=== PATIENT | female | born 1980 | race Caucasian/White ===

== ENCOUNTER 2017-04-27 15:02 | Inpatient (IN) | payer OTHER ==
[~2017-04-27] VITALS: Ht 157.5 cm; Wt 76.3 kg
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
[2017-04-27] MEDS ORDERED: LAMICTAL (23:49)
[2017-04-27] MEDS ORDERED: ALPRAZOLAM (23:50)
[2017-04-27] MEDS ORDERED: SEROQUEL (23:51)
[2017-04-28 01:06] VITALS: BP 122/84
[2017-04-28 07:59] VITALS: BP 125/69
--- NOTE | 2017-04-28 10:39 | CPS PROVIDER INIT ASMT PSYCH ---
Psychiatric Admission Flask Carrier's Note Reviewed: Yes Patient Seen and Examined: Yes Identifying Information: 37yoF with hx of bipolar disorder Chief Complaint: "I was doing good" Reaction to Hospitalization: positive History of Present Illness Onset of Illness: years ago Circumstances Leading to Admission: without meds Problem(s) Justifying Need for Admission: worsening psychosis Other HPI: Per patient, she was very stable until medication change a few months ago. Since that time, things have been more difficult for her. She notes significant depression. Denies SI or HI. Feels that there are "no happy things" in her life. She denies AVHs but ?endorsed them in the past. Very poor historian. Past Psychiatric History Past Diagnosis(es)- if any: Bipolar disorder Past Precipitating Factors- if any: unknown - Include inpatient and outpatient treatment Treatment History: Current with [facility] for meds History of Suicide Attempts or Gestures SA with alcohol and all her medications in the past, became very tearful speaking about this time of her life. Substance Abuse History: Tobacco: 1/2-1ppd Alcohol: denied Illicits: denied, notes she does take her rx xanax 1/2 tablet daily Allergies: Coded Allergies: No Known Allergies (04/27/17) PER [facility] RECORD/PT UNABLE TO ANSWER Home Med List: Lamictal, xanax, and seroquel Pt not taking seroquel but taking lamicta Does not know the dose - Include any medical condition(s) that may - impact the patient's recovery/remission Past Medical History: see H&P Past History Medical History Neurological: NONE EENT: NONE Cardiovascular: NONE Respiratory: NONE Gastrointestinal: NONE Hepatic: NONE Renal: NONE Musculoskeletal: NONE Psychiatric: anxiety, bipolar disease, psychosis Endocrine: NONE Blood Disorders: NONE Cancer(s): NONE 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 History of MRSA: No History of VRE: No History of CDIFF: No Isolation History: Standard Surgical History Surgical History: none Psychiatric Family/Social Hx Family History Psychiatric Illness: depression and anxiety in the family Substance Use: denied Suicides: denied Social History Living Situation: Lives in ?rooming house but has own apartment (very vague narrative and tangiental when asked for more details) Significant Relationships (family/friends): has family and few freinds Education: HS completed, took some college courses 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 - #1 Recognizing dangerous situations. - #2 Coping Skills. - #3 Basic information about quitting. Status of Tobacco Cessation Counseling: #1, #2 AND #3 Completed Cessation Med Status Nicotine Patch Ordered Alcohol Screening - ETOH screen POS if BAL >=80 or Audit-C>= M4/F3 Audit-C Score from Diag Assess: 0 Alcohol Use Screening Results: Neg per Audit C &/or BAL - If ETOH counseling indicated - the following topics are required. - #1 Express concern about the patient's - drinking at unhealthy levels, include informing - of national norms for moderate drinking: - men <= 14 drinks/week, max 4 drinks/occasion - women <= 7 drinks/week, max 3 drinks/occasion - #2 Providing feedback, including linking alcohol to - negative physical effects (liver injury, hypertension) - negative emotional effects (relationship problems and - depression) - negative occupational consequences (reduced work - performance) - #3 Advising the patient to abstain from alcohol or - to drink below national norms for moderate drinking - (as listed above). Status of ETOH Use Counseling: #1, #2 AND #3 Completed. Metabolic Screening - Screen if on a Neuroleptic Medication - Metabolic screening should include: - Blood Pressure, BMI, Glucose or Hgb A1c, & a - Lipid profile from within the past 365 days. Metabolic Screening Pending labs Exam and Plan Mental Status Examination Ambulation Status: walking freely Appearance: older than stated age Attitude towards examiner: cooperative Psychomotor activity: ++ agitation Behavior: cooperative Quality of speech: nl r/r/s/v,slightly pressured and bizzare Affect: labile, irritable, serena, congruent Mood: "things are bad" Suicidal Ideation: denied current or recent Homicidal Ideation: denies current or recent Hallucinations: denied Paranoid/Delusional Material: ++ around neighbors and medical staff in [place] Difficulties with thought organization: slightly disorganized and bizzare Insight: poor Judgment: poor Orientation: a/o x4 Cognition: grossly intact Memory Function: grossly intact Estimate of intellectual functioning: average Assets/Strengths Patient Identified Assets/Strengths: has supportive family, has employment, has housing Impression/Plan Impression and Plan: Pt with hx of Bipolar disorder with worsening mood stabilit and increasing paranoia with medication changes. - Include all active medical diagnosis that require tx DSM 5 Diagnosis(es): Bipolar disorder with psychotic features Nicotine dependence - Initial Tx Plan for Active Psych & Medical Conditions Treatment Plan: - Discontinue seroquel, start zyprexa - Discontinue xanax and started ativan PRN severe anxiety - Would like to restart Lamictal but pt does not know dose, staff to call the pharmacy and find out her dose. She is adamant that she has been taking regularly. Will review pharm records and restart. - Need family meeting - Encourage groups - Factors that would help patient function - in a less restrictive setting. Factors: medication changes
--- NOTE | 2017-04-28 11:59 | SOCIAL WORKER SOCIAL HX PSYCH ---
Haylie Oseguera 04/28/17 1153: Social History Basic Assessment Insurance Authorization: Insurance #1: Insurance name: ANASTACIA HMO Phone number: Policy number: [id number] Group number: [id number] Authorization number: Curr Source of Income/Entitlements: employment Primary Care Physician: Patient's PCP: Jasper Blake MD PCP's Primary Language? Turkmen Language(s) Spoken At Home: Turkmen Living Situation Rents or Owns Home? rents Feel Safe Where You Are Living No Feel Safe in Relationships? No Allergies - Coded Allergies: No Known Allergies (04/27/17) PER [facility] RECORD/PT UNABLE TO ANSWER Current Medications - Miscellaneous Medications [ALPRAZOLAM] (Unknown Strength) (Unknown Dose) MENTAL HEALTH (Reported) Entered as Reported by Margoth Hernandez on 04/27/17 2350 [LAMICTAL] (Unknown Strength) (Unknown Dose) MENTAL HEALTH (Reported) Entered as Reported by Margoth Hernandez on 04/27/17 2349 [SEROQUEL] (Unknown Strength) (Unknown Dose) MENTAL HEALTH (Reported) Entered as Reported by Margoth Hernandez on 04/27/17 2351 Past History Past Medical History Neurological: NONE EENT: NONE Cardiovascular: NONE Respiratory: NONE Gastrointestinal: NONE Hepatic: NONE Renal: NONE Musculoskeletal: NONE Psychiatric: anxiety, bipolar disease, psychosis Endocrine: NONE Blood Disorders: NONE Cancer(s): NONE 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 No Relationship w/Mother: good Relationship w/Father: good Any Sibling(s)? Yes Sibling's Gender(s)/Age(s): male Sibling 1:, female Sibling 2:, female Sibling 3: Relationship w/Sibling(s): Pt reports "good" Relationship w/Friends: pt reports "good" Abuse/Trauma History Trauma History/Current Trauma: None, per Dr. Bender' note Legal History Have you ever been arrested Yes Psychiatric Treatment History Psych Treatment Inpatient Treatment Yes Outpatient Treatment Yes Location of Treatment Inpatient: [facility]. Outpatient: Private practice Reason for Treatment Inpatient: Suicide attempt Outpatient: Management of bipolar d/o Dates of Treatment Inpatient: 05/19/2002, followed by day program at Response to Treatment Unknown Diagnosis: F31.9 Bipolar I, unspecified Risk Factors: history of suicide atmpts, SA/MH hospitalized, lives alone, limited support Current Mental Status Mental Status Orientation: Current situation Affect: Anxious, Sad Speech: Hyper-verbal, Incoherent, Soft Appearance Appearance- Dress/Hygiene: Pt disheveled, wrapped in blanket Behaviors Thought Process: Tangential Thought Content: Paranoid Memory: Impaired Insight: Poor SI/HI Risk Assessment Past Suicidal Ideation/Attempts Yes - Conclusion and Recommendations for treatment - and discharge planning Summary: Pt unable to complete psychosocial interview. The pt ruminated over the time, not feeling safe, and fearing for her friends. Pt presented delusional. Dallin Levine 04/28/17 1603: Current Mental Status - Conclusion and Recommendations for treatment - and discharge planning
[2017-04-28 12:12] VITALS: BP 138/85
[2017-04-28 15:40] VITALS: BP 146/78
--- NOTE | 2017-04-28 15:51 | History & Physical ---
General Information and HPI MD Statement: I have seen and personally examined SUSY BERGER and documented this H&P. The patient is a 37 year old F who presented with a patient stated chief complaint of psychosis Source of Information: patient Exam Limitations: unable to give history History of Present Illness: 37-year-old female with history documented for psychosis and bipolar disorder who was sent in to Inpatient Psychiatry from [facility]. Unfortunately history is very limited as patient kept on saying I don't know I don't know. She is acutely psychotic. She had visitors visiting and after that she started to cry. She is walking wobbly and claims that she gets very tired when she walks. She denies any pain as such. She is crying and then talk and then cries and then talk. She could not provide me any history about her allergies or medications. Unfortunately the history was extremely limited. Allergies/Medications Allergies: Coded Allergies: No Known Allergies (04/27/17) PER [facility] RECORD/PT UNABLE TO ANSWER Home Med list [ALPRAZOLAM] (Unknown Strength) (Unknown Dose) MENTAL HEALTH (Reported) [LAMICTAL] (Unknown Strength) (Unknown Dose) MENTAL HEALTH (Reported) [SEROQUEL] (Unknown Strength) (Unknown Dose) MENTAL HEALTH (Reported) Past History Medical History Neurological: NONE EENT: NONE Cardiovascular: NONE Respiratory: NONE Gastrointestinal: NONE Hepatic: NONE Renal: NONE Musculoskeletal: NONE Psychiatric: anxiety, bipolar disease, psychosis Endocrine: NONE Blood Disorders: NONE Cancer(s): 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 Other Review of Systems Review of Systems Constitutional: Reports: see HPI. EENTM: Reports: see HPI. Cardiovascular: Reports: see HPI. Respiratory: Reports: see HPI. GI: Reports: see HPI. Musculoskeletal: Reports: see HPI. Neurological/Psychological: Reports: see HPI. Exam & Diagnostic Data Last 24 Hrs of Vital Signs/I&O Vital Signs Date Time Temp Pulse Resp B/P B/P Pulse O2 O2 Flow FiO2 Mean Ox Delivery Rate 04/28 1540 88 146/78 04/28 1212 89 138/85 04/28 0759 97.8 85 125/69 04/28 0106 97.6 66 122/84 Intake & Output 04/28 1600 04/28 0800 04/28 0000 Intake Total Output Total Balance Patient 168 lb Weight Physical Exam General Appearance acutely psychotic. Skin No Rashes HEENT PERRLA Neck Supple Cardiovascular Regular Rate, Normal S1, Normal S2 Lungs Clear to Auscultation Abdomen Normal Bowel Sounds, Soft, No Tenderness Neurological Cranial Nerves II through XII: intact Extremities No Edema Last 24 Hrs of Labs/Guero: Laboratory Tests 04/28/17 0930: Anion Gap 16, Estimated GFR > 60, BUN/Creatinine Ratio 9.0 04/27/17 2100: Urine Test Cancelled Assessment/Plan Assessment: 37-year-old female with past history significant for anxiety, psychosis and bipolar disorder who is admitted to Inpatient Psychiatry with acute psychosis. No documented medical history. Currently patient is getting treated with lamotrigine, Zyprexa, trazodone, Ativan, hydroxyzine when necessary. She also has nicotine patch ordered. For the psych management for psych. No active acute medical issues at present. As Ranked By This Provider Problem List: 1. Anxiety 2. Psychosis 3. Bipolar 1 disorder Miscellaneous Miscellaneous Documentation Attending Case Discussed With: Melly Blood MD Primary Care Physician: Hayden BALDWIN,Jasper Doe Patient sees these Specialists unknown Level of Patient Care: ROSALEE Madera
[2017-04-28 20:07] VITALS: BP 143/78
[2017-04-29 07:45] VITALS: BP 143/78
--- NOTE | 2017-04-29 10:07 | CP SOUTH PROGRESS NOTE PSYCH ---
Psych (Inpt) Progress Note Progress Note Include the following elements, when applicable: Involvement in the active treatment of the patient with behavioral observations of the patient and the patient's response to the treatment. Review of the ongoing treatment process in the context of the treatment plan. Indication of how multi-disciplinary staff members are carrying out the treatment plan. Plans for future interventions and recommendations for revision of the treatment plan. Liaison with other physicians/providers. Progress Note: Pt placed on 1:1 as fall risk and pacing at times. She has been medication complaint. Redirectable. Rambling speech today, not unlike yesterday. Denies SI or HI. Current Medications Sig/Kimberly Start time Last Medication Dose Route Stop Time Status Admin Acetaminophen 650 MG Q6P PRN 04/28 1800 AC 04/28 PO 1803 Hydroxyzine HCl 50 MG Q6P PRN 04/27 2045 AC 04/29 PO 0958 Lamotrigine 125 MG BID 04/28 1115 AC 04/29 PO 0911 Lorazepam 2 MG ONE ONE 04/28 2020 DC 04/28 PO 04/28 Lorazepam 0.5 MG Q6P PRN 04/27 2045 AC 04/28 PO 05/04 Nicotine 21 MG DAILY 04/28 1000 AC 04/29 TOP 0911 Nicotine 2 MG Q2P PRN 04/27 2030 AC PO Olanzapine 10 MG AT BEDTIME 04/27 2200 AC 04/28 PO 2011 Trazodone HCl 50 MG AT BEDTIME NEED.. 04/27 2045 AC 04/28 PO 0059 Laboratory Tests 04/29 04/28 04/27 0700 0930 2100 Chemistry Sodium (137 - 145 mmol/L) 144 Potassium (3.5 - 5.1 mmol/L) 4.1 Chloride (98 - 107 mmol/L) 109 H Carbon Dioxide (22 - 30 mmol/L) 19 L Anion Gap (5 - 16) 16 BUN (7 - 17 mg/dL) 9 Creatinine (0.5 - 1.0 mg/dL) 1.0 Estimated GFR (>60 ml/min) > 60 BUN/Creatinine Ratio (7 - 25 %) 9.0 Hemoglobin A1c (4.2 - 5.8 %) Pending Triglycerides (<150 mg/dL) 115 Cholesterol (<200 MG/DL) 163 LDL Cholesterol, Calc (65 - 129 mg/dL) 95 HDL Cholesterol (40 - 60 mg/dL) 45 Cholesterol/HDL Ratio (0.00 - 4.23 %) 4 Vitamin B12 (239 - 931 pg/mL) 932 H TSH (0.270 - 4.200 uIU/mL) 1.490 Urines Urine Test Cancelled Vital Signs Date Time Temp Pulse Resp B/P B/P Pulse O2 O2 Flow FiO2 Mean Ox Delivery Rate 04/29 745 96.8 97 143/78 04/28 2007 98.2 92 143/78 04/28 1540 88 146/78 04/28 1212 89 138/85 MSE Appears older than stated age; cooperative, rambling non-pressured speech, no eye contact, mood "I'm OK I think," affect irritable, bizzare, labile, congruent , tangenital TP, does not appear to be responding to internal stimuli, denies SI or HI, denied AVHs, very poor judgement. Pt with hx of Bipolar disorder with worsening mood stabilit and increasing paranoia with medication changes now with some unstable gait. Concern for medication-induced. To start by reducing ativan and hydroxyzine. - Continue zyprexa - Discontinue xanax and started ativan PRN severe anxiety, decreased to q8p from q6p - Decreased atarax dose to 25mg - Lamictal restarted, verified with home pharmacy - Need family meeting - Encourage groups
[2017-04-29 12:40] VITALS: BP 133/89
[2017-04-29 15:51] VITALS: BP 142/77
[2017-04-29 19:19] VITALS: BP 136/79
[2017-04-30 08:01] VITALS: BP 141/82
[2017-04-30 12:13] VITALS: BP 137/86
--- NOTE | 2017-04-30 15:35 | CP SOUTH PROGRESS NOTE PSYCH ---
Psych (Inpt) Progress Note Progress Note SUSY BERGER has been admitted for 3 days. 04/30/17 Progress Note: Current Medications Sig/Kimberly Start time Last Medication Dose Route Stop Time Status Admin Acetaminophen 650 MG Q6P PRN 04/28 1800 AC 04/29 PO 1444 Diphenhydramine HCl 50 MG ONE ONE 04/29 2024 DC 04/29 PO 04/29 Divalproex Sodium 500 MG BID 04/30 1508 UNVr PO Gabapentin 600 MG AT BEDTIME 04/30 2200 UNVr PO Haloperidol 2.5 MG ONE ONE 04/29 2024 DC 04/29 PO 04/29 Hydroxyzine HCl 25 MG Q6P PRN 04/29 1015 AC PO Lamotrigine 125 MG BID 04/28 1115 AC 04/30 PO 0855 Lorazepam 2 MG ONCE ONE 04/30 1515 UNVr PO 04/30 1516 Lorazepam 1 MG 0110 04/30 011 DC 04/30 PO 04/30 011 0115 Lorazepam 1 MG ONE ONE 04/29 2024 DC 04/29 PO 04/29 Lorazepam 0.5 MG Q8P PRN 04/29 1015 AC 04/30 PO 05/06 1003 0855 Nicotine 21 MG ONCE ONE 04/30 1515 UNVr TOP 04/30 1516 Nicotine 21 MG DAILY 04/28 1000 AC 04/30 TOP 0855 Nicotine 2 MG Q2P PRN 04/27 2030 AC PO Olanzapine 10 MG ONCE ONE 04/30 1515 UNVr PO 04/30 1516 Olanzapine 5 MG 0110 04/30 011 DC 04/30 PO 04/30 011 0115 Olanzapine 10 MG AT BEDTIME 04/27 2200 AC 04/29 PO 195 Trazodone HCl 50 MG AT BEDTIME NEED.. 04/27 2045 DC 04/29 PO 2023 Orders Procedure Date/time Status VALPROIC ACID 05/03 0600 Active HEPATIC FUNCTION PANEL 05/03 0600 Active [facility] Sitter/Safety Monitor 04/29 1900 Active THYROID STIMULATING HORMONE 04/29 0600 Complete LIPID PANEL 04/29 0600 Complete GLYCOSYLATED HGB 04/29 0600 Complete VITAMIN B12 04/29 0600 Complete [facility] Sitter/Safety Monitor 04/29 0000 Active SUB HSP (15 MIN) 04/29 UNK Complete INPT Psych Sitter 04/29 UNK Active [facility] Sitter/Safety Monitor 04/29 UNK Complete Regular Diet 04/28 B Active INPT Psych Sitter 04/28 2310 Complete BASIC ELECTROLYTES PLUS BUN&CR 04/28 06 Complete INIT HSP (50 MIN) 04/28 UNK Complete INPT Psych Sitter 04/28 UNK Complete MISSING MEDICATION FORM 04/28 UNK Active Vital Signs 04/27 2050 Active Inpt Psych Teach/Educate 04/27 2050 Active Nutritional Intake, Monitor 04/27 2050 Active Inpt Psych Auricular Acupunctu 04/27 2050 Active Patient Data - inpatient psych 04/27 2020 Active Admit to inpatient psych 04/27 2020 Active EKG 04/27 2020 Active Vital Signs 04/27 UNK Active Activity/Ambulation 04/27 UNK Active Laboratory Tests 04/29 04/28 04/27 0700 0930 2100 Chemistry Sodium (137 - 145 mmol/L) 144 Potassium (3.5 - 5.1 mmol/L) 4.1 Chloride (98 - 107 mmol/L) 109 H Carbon Dioxide (22 - 30 mmol/L) 19 L Anion Gap (5 - 16) 16 BUN (7 - 17 mg/dL) 9 Creatinine (0.5 - 1.0 mg/dL) 1.0 Estimated GFR (>60 ml/min) > 60 BUN/Creatinine Ratio (7 - 25 %) 9.0 Hemoglobin A1c (4.2 - 5.8 %) 5.8 Triglycerides (<150 mg/dL) 115 Cholesterol (<200 MG/DL) 163 LDL Cholesterol, Calc (65 - 129 mg/dL) 95 HDL Cholesterol (40 - 60 mg/dL) 45 Cholesterol/HDL Ratio (0.00 - 4.23 %) 4 Vitamin B12 (239 - 931 pg/mL) 932 H TSH (0.270 - 4.200 uIU/mL) 1.490 Urines Urine Test Cancelled Vital Signs Date Time Temp Pulse Resp B/P B/P Pulse O2 O2 Flow FiO2 Mean Ox Delivery Rate 04/30 1213 91 137/86 04/30 0801 98.2 81 141/82 04/29 1919 97.5 97 136/79 04/29 1551 90 142/77 Case was discussed in Interdisciplinary Treatment Team Meeting this morning with Dr. Worley present. The chart was reviewed, including vital signs, labs and medications. 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 She was able to report a failed trial of lithium in the past with severe tremor and adverse events that were intolrable and resulted in D/C. She was not able to provide much more useful hx as she attempted to explain her hx by lining pencils up on te desk. She started to articulate illogcal and confused thoughts which didn't make any sense. She exhibited inappropriate laughter at some points. She agreeed to take new medications that were discussed with her. She reported she has never taken Depakote in the past. Pertinent Review of Systems (ROS): denies any somatic complaints. Mental Status Examination Appearance: dressed in hospital garb Behavior/Activity: She was attempting to explain her medication history by laying pencils out on the desk and pages from a coloring book. Speech: normal Thought Form: Clearly thought disordered, confused, disconnected thoughts only able to provide some specific information about medication history specifically with the lithium Thought Content: She acknowledged that she is experiencing auditory hallucinations and paranoid ideation but she was not able to get into the specifics. Mood: Hypomanic, slightly elated Affect: Inappropriate laughter at points during the encounter Suicidal Ideation: denies Homicidal Ideation:denies Orientation: oriented in all spheres Memory: grossly intact Judgment/Insight: Poor Attention/Concentration: Impaired Other: Medical Decision Making (Note new problems, management options, dangerousness risks) Assessment: 37 yo female experiencing manic decempemsation with psychosis. She has not been taking medication for about 3 months. Diagnoses: Acute decompensationBipolar disorder with psychotic features Treatment Plan: Start Depakote ER 500 mg by mouth twice a day Continue Zyprexa 10 mg at bedtime 1 time dose of Zyprexa 10 mg now 1 time dose of Ativan 2 mg now Valproic acid level and liver panel pending for a.m. STATUS: Voluntary A total of 45 minutes was spent with the patient, with more than 50% of the timespent in counseling and/or coordination of care.
--- NOTE | 2017-04-30 15:39 | SOCIAL WORKER PROG NOTE PSYCH ---
Social Work Progress Note Progress Note Marizol was sitting by the [employer], with a pile of papers in her hand. She seemed excited to meet me and as we started walking towards a place to talk, as we were walking she started taking items off of the nursing station and needed redirection to give them back. She remains on a one to one sitter due to her symptoms at this time. She went straight into the bathroom and was there for at least 20 minutes. I did not get to interact with her further.
[2017-04-30 15:53] VITALS: BP 144/65
[2017-04-30 20:05] VITALS: BP 135/82
[2017-05-01 08:47] VITALS: BP 140/79
[2017-05-01 12:31] VITALS: BP 133/92
--- NOTE | 2017-05-01 13:54 | SOCIAL WORKER PROG NOTE PSYCH ---
Social Work Progress Note Progress Note Marizol appeared very labile today. Presented as tearful and hyperverbal with disorganized tangential thoughts. She stated she was crying because she was "so happy." She attempted to give me answers to some of my questions, but she had difficulting organizing thoughts and staying on topic. She talked briefly about an ex-boyfriend Joaquin who she had been living with and how her family had gone on a cruise for Thanksgiving. She felt she was not doing well, but didn't have anyone to trust or turn to. She reports being under alot of stress. As I am trying to talk to her, I was stating "Do you?.." She said "know the kotain man. " It was difficult to have any rational conversation. She kept stating she needs to be not so low and brought up a little on her meds. I told her that I was going to reach out to family. Left a message with Marizol's Mother [phone]. Marizol was very hyperverbal, but a little less tearful. She rambled about her medications not being right and how she knows what works and what doesn't and she doesn't feel she is being heard. Empathized with her frustrations.
--- NOTE | 2017-05-01 14:19 | CP SOUTH PROGRESS NOTE PSYCH ---
Psych (Inpt) Progress Note Progress Note SUSY BERGER has been admitted for 4 days. 05/01/17 Progress Note: Current Medications Sig/Kimberly Start time Last Medication Dose Route Stop Time Status Admin Acetaminophen 650 MG Q6P PRN 04/28 1800 AC 04/29 PO 1444 Divalproex Sodium 500 MG BID 04/30 1508 AC 05/01 PO 0840 Gabapentin 600 MG AT BEDTIME 04/30 2200 AC 04/30 PO 2226 Hydroxyzine HCl 25 MG Q6P PRN 04/29 1015 AC PO Lamotrigine 125 MG BID 04/28 1115 AC 05/01 PO 0840 Lorazepam 2 MG ONCE ONE 04/30 1515 DC 04/30 PO 04/30 1516 1556 Lorazepam 0.5 MG Q8P PRN 04/29 1015 AC 05/01 PO 05/06 1003 0950 Nicotine 21 MG ONCE ONE 04/30 1515 DC 04/30 TOP 04/30 1516 1556 Nicotine 21 MG DAILY 04/28 1000 AC 05/01 TOP 1021 Nicotine 2 MG Q2P PRN 04/27 2030 AC PO Olanzapine 10 MG ONCE ONE 04/30 1515 DC 04/30 PO 04/30 1516 1556 Olanzapine 10 MG AT BEDTIME 04/27 2200 AC 04/30 PO 2226 Trazodone HCl 50 MG AT BEDTIME NEED.. 04/27 2045 DC 04/29 PO 2023 Laboratory Tests 04/29 0700 Chemistry Hemoglobin A1c (4.2 - 5.8 %) 5.8 Triglycerides (<150 mg/dL) 115 Cholesterol (<200 MG/DL) 163 LDL Cholesterol, Calc (65 - 129 mg/dL) 95 HDL Cholesterol (40 - 60 mg/dL) 45 Cholesterol/HDL Ratio (0.00 - 4.23 %) 4 Vitamin B12 (239 - 931 pg/mL) 932 H TSH (0.270 - 4.200 uIU/mL) 1.490 Orders Procedure Date/time Status VALPROIC ACID 05/03 0600 Active HEPATIC FUNCTION PANEL 05/03 0600 Active [facility] Sitter/Safety Monitor 05/01 UNK Complete [facility] Sitter/Safety Monitor 04/29 1900 Complete [facility] Sitter/Safety Monitor 04/29 0000 Complete SUB HSP (15 MIN) 04/29 UNK Complete INPT Psych Sitter 04/29 UNK Complete [facility] Sitter/Safety Monitor 04/29 UNK Complete INPT Psych Sitter 04/28 2310 Complete INIT HSP (50 MIN) 04/28 UNK Complete INPT Psych Sitter 04/28 UNK Complete MISSING MEDICATION FORM 04/28 UNK Active Vital Signs Date Time Temp Pulse Resp B/P B/P Pulse O2 O2 Flow FiO2 Mean Ox Delivery Rate 05/01 1231 96 133/92 05/01 0847 97.2 98 140/79 04/30 2005 97.1 85 135/82 04/30 1553 98 144/65 Case was discussed in Interdisciplinary Treatment Team Meeting this morning with Dr. Worley present. The chart was reviewed, including vital signs, labs and medications. Interval History/Chief Complaint: She was tearful and sobbing during the encounter today. She is still confused but able to articulate her thoughts somewhat better than she was able yesterday- -less manic and more on the depressed side today Pertinent Review of Systems (ROS): denies somatic complaints Mental Status Examination Appearance: dressed and groomed Behavior/Activity: Speech: normal Thought Form: confused, disjointed thoughts Thought Content: + AH's Mood: sad depressed Affect: crying Suicidal Ideation: denies Homicidal Ideation:denies Orientation: not assessed today Memory: grossly impaired Judgment/Insight: poor Attention/Concentration: intact Other: Medical Decision Making (Note new problems, management options, dangerousness risks) Assessment: She is still very confused and today mood has shifted to being depressed Diagnoses: Acute decompensationBipolar disorder with psychotic features Treatment Plan: zyprexa 5 mg now. klonopin 0.5 mg tid x 3 days continue current treatment plan STATUS: Voluntary A total of 45 minutes was spent with the patient, with more than 50% of the timespent in counseling and/or coordination of care.
[2017-05-01 15:59] VITALS: BP 115/77
[2017-05-01 19:47] VITALS: BP 130/76
[2017-05-02 08:59] VITALS: BP 131/101
[2017-05-02 12:20] VITALS: BP 112/77
--- NOTE | 2017-05-02 16:19 | SOCIAL WORKER PROG NOTE PSYCH ---
Social Work Progress Note Progress Note Marizol's Mother Thalia called and asked if I could fax a letter to Marizol's employer stating she is currently in the hospital. This information was faxed to Cheri Vera at [phone]. Met with Marizol who was less labile today than yesterday. She was able to have a conversation without sobbing. Thoughts were more organized as well. She has been trying to verbalize a sequence of events to me that show that there have been a number of stressors leading up to her decompensation and that it wasn't just one thing. She denies being off of her meds. Family meeting is scheduled for 4pm tomorrow. Called and left updated clinical with Cesar for continued stay.
[2017-05-02 16:41] VITALS: BP 113/69
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
[2017-05-02 19:36] VITALS: BP 128/78
[2017-05-03 07:59] VITALS: BP 114/57
[2017-05-03 12:23] VITALS: BP 119/71
[2017-05-03 15:56] VITALS: BP 130/72
--- NOTE | 2017-05-03 17:33 | SOCIAL WORKER PROG NOTE PSYCH ---
Social Work Progress Note Progress Note Family meeting held with Marizol and her parents. Her parents stated Marizol had been stable for a long time. She has not had an inpatient hospitalization in about 10 years. They were very surprised she was in this much of a decompensated state. The usually talk to Marizol on the phone or see her weekly. They had no idea alot of what she had been describing was going on. They do not want her to return home to her apartment at / and want her to come stay with them in [place]. Marizol is upset about the possibility of leaving her cats. She cannot take her 3 cats to her parents. She cried about the idea of being here through the weekend. I told her she has made alot of progress, but more is needed. She remained pretty hyperverbal during the meeting, she talked for a good majority of the hour we spent. She has alot of details that she likes to share about what has happened to her. Alot of it is repetative and I needed to redirect. She is still having a difficult time adjusting her sleep schedule to being here and adjusting the time she needs to take meds while here. She will most likely go on FMLA from work for some time. We will discuss aftercare possibilities in future meetings. Parents were very supportive.
[2017-05-03 20:02] VITALS: BP 135/62
--- NOTE | 2017-05-03 20:04 | CP SOUTH PROGRESS NOTE PSYCH ---
Psych (Inpt) Progress Note Progress Note SUSY BERGER has been admitted for 6 days. 05/03/17 Progress Note: Laboratory Tests 05/03 628 Chemistry Total Bilirubin (0.2 - 1.3 mg/dL) 0.5 Direct Bilirubin (< 0.4 mg/dL) 0.3 AST (14 - 36 U/L) 21 ALT (9 - 52 U/L) 31 Alkaline Phosphatase (<127 U/L) 74 Total Protein (6.3 - 8.2 g/dL) 6.9 Albumin (3.5 - 5.0 g/dL) 4.0 Toxicology Valproic Acid (50 - 120 ug/mL) 63.8 Vital Signs Date Time Temp Pulse Resp B/P B/P Pulse O2 O2 Flow FiO2 Mean Ox Delivery Rate 05/03 1556 72 130/72 05/03 1223 74 119/71 05/03 0759 96.9 78 114/57 Current Medications Sig/Kimberly Start time Last Medication Dose Route Stop Time Status Admin Acetaminophen 650 MG Q6P PRN 04/28 1800 AC 04/29 PO 1444 Clonazepam 0.5 MG TID 05/01 1600 AC 05/03 PO 05/11 2300 1701 Divalproex Sodium 500 MG BID 04/30 1508 AC 05/03 PO 0918 Gabapentin 600 MG AT BEDTIME 04/30 220 AC 05/02 PO 2149 Hydroxyzine HCl 25 MG Q6P PRN 04/29 1015 AC PO Lamotrigine 125 MG BID 04/28 1115 AC 05/03 PO 0815 Lorazepam 0.5 MG Q8P PRN 04/29 1015 AC 05/01 PO 05/06 1003 0950 Nicotine 21 MG DAILY 04/28 1000 AC 05/03 TOP 0815 Nicotine 2 MG Q2P PRN 04/27 2030 AC PO Olanzapine 10 MG AT BEDTIME 04/27 2200 AC 05/02 PO 2149 Sertraline HCl 50 MG DAILY 05/01 1410 AC 05/03 PO 0918 Orders Procedure Date/time Status SUB HSP (35 MIN) 05/02 UNK Complete MISSING MEDICATION FORM 05/02 UNK Active SUB HSP (35 MIN) 05/01 UNK Complete [facility] Sitter/Safety Monitor 05/01 UNK Complete SUB HSP (35 MIN) 04/30 UNK Complete She is sleeping through the night. She appears to be less manic and her thinking is more organized but she remains thought disordered overall, but exhibiting improvement. PLAN: Continue current treatment plan. arrange meeting with parents monitor response to medications
[2017-05-04 08:14] VITALS: BP 117/75
[2017-05-04 12:14] VITALS: BP 120/75
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
--- NOTE | 2017-05-04 15:00 | SOCIAL WORKER PROG NOTE PSYCH ---
Social Work Progress Note Progress Note Started filling out [facility] paperwork for Marizol. Met with Marizlo, who wanted to share a picture/graph of how she thinks her meds should be given. She remains very preoccupied with her medication and schedule. She is feeling tired of repeating herself in attempts to advocate for what she feels she needs. She remains hyperverbal and tangential. She is having a very hard time with the idea that she may go to her parent's home after discharge. She can't bear the idea of giving up her cats. She is very attached to her 3 cats and has had to give up pets in the past. She became very tearful. She was also tearful when talking about the idea of not being able to return to work around [place]. I told her I was filling out the [facility] paperwork and I thought she may need a couple of months at least, so she could follow up at [facility]. She has limited insight into what she needs realistically. She is disappointed that she ended up in the hospital. I talked about relapses happening and it's ok that she is here. She feels over stimulated by the unit at times and needs to find time when she can feel grounded. Told her I will see her Sunday and to try and have a good weekend.
[2017-05-04 15:53] VITALS: BP 125/72
[2017-05-04 19:40] VITALS: BP 118/66
[2017-05-05 07:39] VITALS: BP 135/76
--- NOTE | 2017-05-05 08:57 | CP SOUTH PROGRESS NOTE PSYCH ---
See Addendum Psych (Inpt) Progress Note Progress Note Include the following elements, when applicable: Involvement in the active treatment of the patient with behavioral observations of the patient and the patient's response to the treatment. Review of the ongoing treatment process in the context of the treatment plan. Indication of how multi-disciplinary staff members are carrying out the treatment plan. Plans for future interventions and recommendations for revision of the treatment plan. Liaison with other physicians/providers. 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 Labile, continued stating that she has to reach in a different direction, farther, so I get back to milk and tearful. Incoherent, difficult to understand. Word salad. MSE: young woman, pleasant, fair grooming. She has no tics, tremors or abnormal invol movements. Her gait was initially unsteady but then normal she stated she is leaning because she has to go in one [place] in one direction and not another. Her speech is rapid. Her affect is labile, mood is good overall. She has referential thinking, word salad at times, overall she is tangential. She denies hearing voices and does not appear internally preoccupied but laughs at her own statements at times. She denies wanting to harm herself or anyone else. She has fair insight and fair judgment. Plan: Agrees to increase zyprexa to include daytime dose 5mg; in addition to her zyprexa 15mg at night time. Continue current plan of care. She remains acutely psychotic and disorganized, increasing her acute risk of harm to self/ others; address with education about her meds, and medication adjustment to target her psychosis.
[2017-05-05 12:12] VITALS: BP 131/88
--- NOTE | 2017-05-05 14:43 | PN- Att Addend ---
Attending Addendum Attending Brief Note 37-year-old female with history documented for psychosis and bipolar disorder who was sent in to Inpatient Psychiatry from [facility]. Informed that the patient slipped and fell down Examine the patient at bedside. Denied any loss of consciousness, nausea vomiting, headache No focal neurological deficits on examination. Cranial nerves intact History mechanical fall. No visible head trauma. Close monitoring. If any symptoms of worsening headache nausea, dizziness syncope lightheadedness - we will obtain imaging of the head.
[2017-05-05 16:02] VITALS: BP 130/80
[2017-05-05 19:33] VITALS: BP 126/78
[2017-05-06 07:56] VITALS: BP 128/62
--- NOTE | 2017-05-06 09:38 | CP SOUTH PROGRESS NOTE PSYCH ---
Psych (Inpt) Progress Note Progress Note Include the following elements, when applicable: Involvement in the active treatment of the patient with behavioral observations of the patient and the patient's response to the treatment. Review of the ongoing treatment process in the context of the treatment plan. Indication of how multi-disciplinary staff members are carrying out the treatment plan. Plans for future interventions and recommendations for revision of the treatment plan. Liaison with other physicians/providers. Progress Note: Stated that she slept like a log, until they say my name, my real name, not a lukas name, otherwise I wont trust you, unless I look you in the eye my middle name is Jeanne, no Aury or Jennie using a walker and appear to be more steady, and mildly less disorganized. Stated that she will have trouble trying to take a shower and turning off the crazy shower thing because of her day time meds. Other difficult to understand statements. MSE: young woman, pleasant, fair grooming. She has no tics, tremors or abnormal invol movements. She uses a walker now and appears mildly more goal oriented in where she is going. Her speech is rapid and difficult to interrupt. Her affect is full and her mood is good. Her thought process is tangential with looseness of association. No gross delusions elicited. No evidence of internal preoccupation but she is easily distracted. She denies wanting to harm herself or anyone else. She has fair insight and fair judgment. Plan: zyprexa 5mg in the day time and 15mg at night time. If unsteady or c/o dizziness change day time dose to night time, had added in the day time dose yesterday to help her organize her thinking. Also stopped her afternoon clonazepam dose. Continue current plan of care. She remains acutely psychotic and disorganized, increasing her acute risk of harm to self/others; address with education about her meds, and medication adjustment to target her psychosis.
[2017-05-06 12:22] VITALS: BP 120/64
[2017-05-06 15:58] VITALS: BP 132/73
[2017-05-06 19:38] VITALS: BP 141/75
[2017-05-07 07:41] VITALS: BP 133/80
--- NOTE | 2017-05-07 09:56 | CT SCAN REPORT ---
EXAMINATION: CT HEAD WITHOUT CONTRAST CLINICAL INFORMATION: Pain status post fall COMPARISON: None TECHNIQUE: Contiguous axial imaging was performed from the skull base to vertex without intravenous administration of contrast. DLP: 628 mGy-cm FINDINGS: There is no evidence of acute intracranial hemorrhage or territorial infarction. No abnormal mass effect or midline shift is seen. Pena to white matter differentiation is well preserved. No extra-axial fluid collections are identified. The ventricles are top normal size. There is no abnormal attenuation within the brain parenchyma. The osseous structures and soft tissues are normal. The mastoid air cells and visualized portions of the paranasal sinuses are well aerated. IMPRESSION: No acute intracranial pathology.
[2017-05-07 12:26] VITALS: BP 122/66
--- NOTE | 2017-05-07 14:12 | SOCIAL WORKER PROG NOTE PSYCH ---
Social Work Progress Note Progress Note Marizol is on a one to one for fall risk and using a walker after having fallen over the weekend and hit head. She reports that the dizziness is from taking Seroquel and that she can't be on that medication. She remains hyperverbal, but increasingly exhausted about "having to tell so many different people her story. " She continues to say she doesn't feel listened to, particularly about her meds. She shared that family visited over the weekend and she spoke with her ex -fiance. She reports that he remains at her apartment and that he would like to come see her. She is talking about staying with him now, which is a change from last week. She stated that she feels he has re-engaged and is trying to be helpful. She is lacking the insight right now to understand that she cannot return to work right away. She is preseverating on missing her [employer] bonus, due to not working. I continue to encourage IOP post discharge. I told her I would like to schedule another family meeting for this week if possible. She seems to want Joaquin (ex-kiara) there. She was very tearful towards the end of our meeting. She is focused on other patients leaving and her still being here. She also feels mistrustful of newer peers. She doesn't want to be here through [employer]. Called Marizol's Mother Madisyn. She confirmed that Joaquin is at the apartment and he was hospitalized for meningitis and he was wondering about Marizol. She is now wondering if what Marizol was saying about Joaquin is accurate or was just a symptom of how ill she is right now. Parents are willing to coordinate a meeting with Joaquin for at 3pm. Called and left updated clinical with Crystal kapadia.
--- NOTE | 2017-05-07 15:28 | Event Note ---
Event Note Event Note: Was called by RN to order head imaging study due to some abnormal behavior. The patient was evaluated by Dr. Osman yesterday and no imaging felt was needed, however with behavior change staff is requesting imaging. CT of head done w/o contrast and demonstrates normal study. No evidence intracranial bleed/trauma. Will follow symptoms which may be due to psych meds ( Seroquel).
[2017-05-07 16:33] VITALS: BP 137/81
--- NOTE | 2017-05-07 16:37 | CP SOUTH PROGRESS NOTE PSYCH ---
Psych (Inpt) Progress Note Progress Note SUSY BERGER has been admitted for 10 days. 05/07/17 Progress Note: Current Medications Sig/Kimberly Start time Last Medication Dose Route Stop Time Status Admin Acetaminophen 650 MG Q6P PRN 04/28 1800 AC 04/29 PO 1444 Clonazepam 0.5 MG BID 05/05 1000 AC 05/07 PO 05/12 0959 0939 Divalproex Sodium 500 MG BID 04/30 1508 AC 05/07 PO 0939 Gabapentin 600 MG AT BEDTIME 04/30 2200 AC 05/06 PO 2149 Hydroxyzine HCl 25 MG Q6P PRN 04/29 1015 AC PO Lamotrigine 150 MG BID@0700,1900 05/04 1900 AC 05/07 PO 0939 Nicotine 21 MG DAILY 04/28 1000 AC 05/07 TOP 0944 Nicotine 2 MG Q2P PRN 04/27 2030 AC 05/04 PO 2133 Olanzapine 5 MG DAILY 05/05 1000 AC 05/07 PO 0939 Olanzapine 15 MG AT BEDTIME 05/04 2200 AC 05/06 PO 2149 Laboratory Tests 05/07 0654 Toxicology Valproic Acid (50 - 120 ug/mL) 88.7 Orders Procedure Date/time Status INPT Psych Sitter 05/07 1303 Active CP South Sitter/Safety Monitor 05/07 1149 Active SUB HSP (15 MIN) 05/04 UNK Complete Vital Signs Date Time Temp Pulse Resp B/P B/P Pulse O2 O2 Flow FiO2 Mean Ox Delivery Rate 05/07 1226 71 122/66 05/07 0741 96.6 76 133/80 05/06 1938 97.5 83 141/75 Case was discussed in Interdisciplinary Treatment Team Meeting this morning with Dr. Worley present. The chart was reviewed, including vital signs, labs and medications. Interval History/Chief Complaint: She presents with a walker and she is slurring her speech. She had taken a fall over the weekend and she was seen by the hospitalist and CT Scan was negative. She is reporting that she is seeking a plan with her SW to have a family mtg with parents and ex-bf on Sunday. She is keeping the current arrangement in place for care of her cats while she will be staying with her parents. I received a VM return msg from Jenna Gillette APRN, who indicated patient has not come in for over 6 months. She also indicated that she is not in her insurance network and suggested that she connect with a prescriber in her network for f/u psych med mgt after d/c from hospital. Pertinent Review of Systems (ROS): ataxia, dizzy and unstable gait slurred speech. Mental Status Examination Appearance: dressed and groomed Behavior/Activity: appropriate Speech: normal Thought Form: logical, coherent and goal-directed Thought Content: no AHs or VHs no delusions elicited Mood: euthymic Affect: full and appropriately reactive Suicidal Ideation: denies Homicidal Ideation:denies Orientation: oriented in all spheres Memory: grossly intact Judgment/Insight: poor to fair Attention/Concentration: intact Other: Medical Decision Making (Note new problems, management options, dangerousness risks) She appears to have been gait ataxic and slurring her speech due to Klonopin/ Gabapentin. Will stop both as she had no prior established benzodiazepine she was taking. Assessment: her thoughts are linear and coherent but still tangential at times - - sleeping through the night. Mood id more stable Diagnoses: Acute decompensationBipolar disorder with psychotic features Treatment Plan: STOP: KLONOPIN ZYPREXA 5 MG QAM ATARAX ID PSYCH PRESCRIBER IN HER INSURANCE NETWORK AND MAKE APPT PART OF D/C PLAN - - CANNOT SEE JENNA GILLETTE APRN DUE TO NOT BEING IN NETWORK FAMILY MEETING WITH PARENTS AND EX-BF IN PROCESS CURRENTLY STATUS: Voluntary A total of 30 minutes was spent with the patient, with more than 50% of the timespent in counseling and/or coordination of care.
[2017-05-07 20:00] VITALS: BP 118/77
[2017-05-08 08:33] VITALS: BP 102/58
[2017-05-08 11:03] VITALS: BP 100/52
--- NOTE | 2017-05-08 11:17 | CP SOUTH PROGRESS NOTE PSYCH ---
Psych (Inpt) Progress Note Progress Note SUSY BERGER has been admitted for 11 days. 05/08/17 Progress Note: Current Medications Sig/Kimberly Start time Last Medication Dose Route Stop Time Status Admin Acetaminophen 650 MG Q6P PRN 04/28 1800 AC 04/29 PO 1444 Clonazepam 0.5 MG BID 05/05 1000 DC 05/07 PO 05/12 0959 0939 Divalproex Sodium 500 MG BID 04/30 1508 AC 05/08 PO 1049 Gabapentin 600 MG AT BEDTIME 04/30 2200 AC 05/07 PO 2120 Hydroxyzine HCl 25 MG Q6P PRN 04/29 1015 DC PO Lamotrigine 150 MG BID@0700,1900 05/04 1900 DC 05/08 PO 0641 Nicotine 21 MG DAILY 04/28 1000 AC 05/07 TOP 0944 Nicotine 2 MG Q2P PRN 04/27 2030 AC 05/04 PO 2133 Olanzapine 5 MG DAILY 05/05 1000 DC 05/07 PO 0939 Olanzapine 15 MG AT BEDTIME 05/040 AC 05/07 PO 2120 Laboratory Tests 05/07 0654 Toxicology Valproic Acid (50 - 120 ug/mL) 88.7 Orders Procedure Date/time Status INPT Psych Sitter 05/07 1303 Active CP South Sitter/Safety Monitor 05/07 1149 Active SUB HSP (15 MIN) 05/05 UNK Complete SUB HSP (35 MIN) 05/03 UNK Complete Vital Signs Date Time Temp Pulse Resp B/P B/P Pulse O2 O2 Flow FiO2 Mean Ox Delivery Rate 05/08 0833 97.6 50 102/58 05/07 2000 96.5 68 118/77 05/07 1633 73 137/81 05/07 1226 71 122/66 Case was discussed in Interdisciplinary Treatment Team Meeting this morning with Dr. Worley present. The chart was reviewed, including vital signs, labs and medications. Interval History/Chief Complaint: Patient was discussed in the morning interdisciplinary team meeting today and it was reported the patient is having increasing difficulty with vomiting and gait ataxia. When patient was seen today it was noted she was unable to get out of bed and had some episodes of emesis. Upon further examination and questioning it was clear that the patient was having severe vertigo and she denied any other complaints or symptoms other than gait ataxia and the emesis. She had no nuchal rigidity and was able to touch her chin to her chest with ease and denied any problems with motor stiffness or involuntary movements etc. Review of medications reveals patient is taking Depakote ER with Lamictal, concomitantly and the Micromedex shows a major interaction between these 2 drugs which results in a higher level of Lamictal and possibly Lamictal toxicity and raises the possibility of rashes and Torres-Gregorio syndrome. She is not having any rash or fever at this time. Discussed this case with Javier Worley MD and he advised the reduction of the Lamictal by 50% and to check a ammonia level and a valproic acid level today. I have also placed a request for Dr. Gottlieb, the hospitalist to come see the patient who has agreed to do so later today. Incidentally, the patient's roommate was hospitalized at [facility] for viral meningitis just prior to admission here as reported by the patient. With the patient's permission I called her roommate/ex-boyfriend to confirm this history and he did acknowledge that he was hospitalized for viral meningitis. The patient did have contact with the boyfriend prior to his admission to hospital for viral meningitis. Patient is experiencing severe vertigo. Medical Decision Making (Note new problems, management options, dangerousness risks) Assessment: Differential diagnosis: Lamictal toxicity due to major medication interaction with valproic acid Labyrinthitis, viral Medication oversedation i.e. Klonopin, Zyprexa, gabapentin, Atarax Viral meningitis (less likely, symptoms not entirely consistent) Diagnoses: Bipolar disorder with psychotic features Treatment Plan: Phenergan 25 mg IM now Antivert 50 mg by mouth 30 minutes after administration of Phenergan Reduce Lamictal dose by 50% Check valproic acid level Check ammonia level check CBC Continue one to one sitter Request hospitalist evaluation (in process) STATUS: Voluntary A total of 45 minutes was spent with the patient, with more than 50% of the timespent in counseling and/or coordination of care.
[2017-05-08 12:29] LABS: ABSOLUTE BASOPHIL COUNT 0 /CUMM (0.0-0.2); ABSOLUTE EOSINOPHIL COUNT 0.1 /CUMM (0.0-0.7); ABSOLUTE GRANULOCYTE CT 7.7 /CUMM (1.4-6.5); ABSOLUTE LYMPH COUNT 1.3 /CUMM (1.2-3.4); ABSOLUTE MONOCYTE COUNT 0.2 /CUMM (0.10-0.60); BASOPHIL % 0.3 % (0.0-2.0); EOSINOPHIL % 0.9 % (0-5); GRANULOCYTE % 82.5 % (42.2-75.2); HEMATOCRIT 39.2 % (37-47); MEAN CORPUSCULAR HGB 30.7 PG (27.0-31.0); MEAN CORPUSCULAR HGB CONC 33.8 G/DL (33.0-37.0); MEAN CORPUSCULAR VOLUME 90.7 FL (81.0-99.0); MEAN PLATELET VOLUME 7.7 FL (7.4-10.4); PLATELET COUNT 275 /CUMM (130-400); RED BLOOD CELL CT 4.32 /CUMM (4.20-5.40); WHITE BLOOD CELL COUNT 9.4 /CUMM (4.8-10.8)
[2017-05-08 12:51] VITALS: BP 106/50
--- NOTE | 2017-05-08 13:27 | PN- Att Addend ---
Attending Addendum Attending Brief Note S: Called to evaluate patient post head trauma for equilibrium issues. The patient fell in bathroom the other day and hit head on rail and then hit sink left lateral orbital region. She has had difficulty ambulating and nausea with some vomiting. This morning she could not get out of bed. Now is able to ambulate with walker. She denies headache or current nausea (post Phenergan). She did describe vertigo to PA, however not to me. She has also had multiple adjustments in her psychiatric medications. No fever or URI symptoms. O: VS: Vital Signs Date Time Temp Pulse Resp B/P B/P Pulse O2 O2 Flow FiO2 Mean Ox Delivery Rate 05/08 1251 60 106/50 05/08 1103 68 100/52 05/08 0833 97.6 50 102/58 Current Medications Sig/Kimberly Start time Last Medication Dose Route Stop Time Status Admin Acetaminophen 650 MG Q6P PRN 04/28 1800 AC 04/29 PO 1444 Clonazepam 0.5 MG BID 05/05 1000 DC 05/07 PO 05/12 0959 0939 Divalproex Sodium 500 MG BID 04/30 1508 AC 05/08 PO 1049 Gabapentin 600 MG AT BEDTIME 04/30 2200 AC 05/07 PO 2120 Hydroxyzine HCl 25 MG Q6P PRN 04/29 1015 DC PO Lamotrigine 75 MG BID 05/08 1119 AC PO Lamotrigine 150 MG BID@0700,1900 05/04 1900 DC 05/08 PO 0641 Meclizine HCl 25 MG ONCE ONE 05/08 1130 DC 05/08 PO 05/08 1131 1249 Nicotine 21 MG DAILY 04/28 1000 AC 05/07 TOP 0944 Nicotine 2 MG Q2P PRN 04/27 2030 AC 05/04 PO 2133 Olanzapine 5 MG DAILY 05/05 1000 DC 05/07 PO 0939 Olanzapine 15 MG AT BEDTIME 05/04 2200 AC 05/07 PO 2120 Promethazine HCl 25 MG ONCE ONE 05/08 1130 DC 05/08 IM 05/08 1131 1212 Physical Exam: HEENT: head- NC/AT- no significant tenderness in left orbital region where injury occurred eyes- PERRLA, EOMI-no nystagmus, fundi- normal ears- canals and TM's normal eric- moist mucosa, no erythema, tongue midline Neck: supple, no adenopathy or thyromegaly, no bruits Chest: clear Cor: RRR nl S1, S2 w/o murm Abd: benign Ext: no edema Neuro: normal motor and sensory, CN intact, FTN/HTS normal- able to ambulate (? sl unsteady) Labs/Tests: Laboratory Tests 05/08/17 1154: Anion Gap 10, Estimated GFR > 60, BUN/Creatinine Ratio 14.0 05/08/17 1154: Ammonia < 9 L, CBC w Diff NO MAN DIFF REQ, RBC 4.32, MCV 90.7, MCH 30.7, RDW 14.0, MPV 7.7, Gran % 82.5 H, Lymphocytes % 14.0 L, Monocytes % 2.3, Eosinophils % 0.9, Basophils % 0.3, Absolute Granulocytes 7.7 H, Absolute Lymphocytes 1.3, Absolute Monocytes 0.2, Absolute Eosinophils 0.1, Absolute Basophils 0, PUBS MCHC 33.8, Valproic Acid 83.4 05/07/17 0654: Valproic Acid 88.[address] 05/07/17 IMPRESSION: No acute intracranial pathology. Impression/Plan: #Dysequilibrium- Other than gait, neuro exam intact. No headache or other focal neuro signs. CT head negative for bleed. Cannot entirely exclude resolving concussion, however this would be unusual w/o headache. labyrinthitis is also possible, however not typical presentation and no nystagmus on exam. May be underlying psych condition and medication. PA states that there have been adjustments made - decrease Lamictal, etc. Plan: Observe with medication adjustments. Continue Pherergan prn. Will consider MRI of brain tomorrow if symptoms not improving. Discussed with [facility] staff.
--- NOTE | 2017-05-08 14:12 | SOCIAL WORKER PROG NOTE PSYCH ---
Social Work Progress Note Progress Note Faxed [facility] paperwork to Dina in HR for Marizol's employment. Marizol remains on one to one due to possible fall risk. Wasn't feeling well this morning. Had experienced some vomiting, but by late in the afternoon she was out of bed feeling a little better. She was coloring in the kitchen. She is upset over the length of time she feels she has been here and continues to hope for discharge prior to . She is aware of the family meeting scheduled for . Seems unsure of what the plan would be at discharge- whether she would live at her apartment or with parents. I told her we will discuss that . She remains tangential and hyperverbal. Needs to be redirected during conversation to get to main point. Less tearful and sad today.
[2017-05-08 16:16] VITALS: BP 138/96
[2017-05-08 20:08] VITALS: BP 127/70
[2017-05-09 07:58] VITALS: BP 127/67
--- NOTE | 2017-05-09 11:17 | CP SOUTH PROGRESS NOTE PSYCH ---
Psych (Inpt) Progress Note Progress Note SUSY BERGER has been admitted for 12 days. 05/09/17 Progress Note: Current Medications Sig/Kimberly Start time Last Medication Dose Route Stop Time Status Admin Acetaminophen 650 MG Q6P PRN 04/28 1800 AC 04/29 PO 1444 Divalproex Sodium 500 MG BID 04/30 1508 AC 05/09 PO 0805 Gabapentin 600 MG AT BEDTIME 04/30 2200 AC 05/08 PO 212 Lamotrigine 75 MG BID 05/08 1119 AC 05/09 PO 0808 Meclizine HCl 25 MG ONCE ONE 05/08 1130 DC 05/08 PO 05/08 1131 1249 Nicotine 21 MG DAILY 04/28 1000 AC 05/09 TOP 0805 Nicotine 2 MG Q2P PRN 04/27 2030 AC 05/04 PO 213 Olanzapine 15 MG AT BEDTIME 05/04 2200 AC 05/08 PO 212 Promethazine HCl 25 MG ONCE ONE 05/08 1130 DC 05/08 IM 05/08 1131 1212 Laboratory Tests 05/08 05/08 05/07 1154 1154 0654 Chemistry Sodium (137 - 145 mmol/L) 140 Potassium (3.5 - 5.1 mmol/L) 4.5 Chloride (98 - 107 mmol/L) 105 Carbon Dioxide (22 - 30 mmol/L) 25 Anion Gap (5 - 16) 10 BUN (7 - 17 mg/dL) 14 Creatinine (0.5 - 1.0 mg/dL) 1.0 Estimated GFR (>60 ml/min) > 60 BUN/Creatinine Ratio (7 - 25 %) 14.0 Ammonia (9 - 30 umol/L) < 9 L Hematology CBC w Diff NO MAN DIFF REQ WBC (4.8 - 10.8 /CUMM) 9.4 RBC (4.20 - 5.40 /CUMM) 4.32 Hgb (12.0 - 16.0 G/DL) 13.3 Hct (37 - 47 %) 39.2 MCV (81.0 - 99.0 FL) 90.7 MCH (27.0 - 31.0 PG) 30.7 RDW (11.5 - 14.5 %) 14.0 Plt Count (130 - 400 /CUMM) 275 MPV (7.4 - 10.4 FL) 7.7 Gran % (42.2 - 75.2 %) 82.5 H Lymphocytes % (20.5 - 51.1 %) 14.0 L Monocytes % (1.7 - 9.3 %) 2.3 Eosinophils % (0 - 5 %) 0.9 Basophils % (0.0 - 2.0 %) 0.3 Absolute Granulocytes (1.4 - 6.5 /CUMM) 7.7 H Absolute Lymphocytes (1.2 - 3.4 /CUMM) 1.3 Absolute Monocytes (0.10 - 0.60 /CUMM) 0.2 Absolute Eosinophils (0.0 - 0.7 /CUMM) 0.1 Absolute Basophils (0.0 - 0.2 /CUMM) 0 PUBS MCHC (33.0 - 37.0 G/DL) 33.8 Toxicology Valproic Acid (50 - 120 ug/mL) 83.4 88.7 Orders Procedure Date/time Status INPT Psych Sitter 05/09 UNK Complete CP South Sitter/Safety Monitor 05/09 UNK Active VALPROIC ACID 05/08 1145 Complete CBC WITHOUT DIFFERENTIAL 05/08 1145 Complete BASIC ELECTROLYTES PLUS BUN&CR 05/08 1145 Complete Change service to 05/08 1111 Active AMMONIA LEVEL 05/08 UNK Complete MISSING MEDICATION FORM 05/08 UNK Active INPT Psych Sitter 05/07 1303 Active CP South Sitter/Safety Monitor 05/07 1149 Active SUB HSP (25 MIN) 05/07 UNK Complete SUB HSP (15 MIN) 05/06 UNK Complete SUB HSP (15 MIN) 05/05 UNK Complete SUB HSP (35 MIN) 05/03 UNK Complete Vital Signs Date Time Temp Pulse Resp B/P B/P Pulse O2 O2 Flow FiO2 Mean Ox Delivery Rate 05/09 0758 97.2 66 127/67 05/08 2008 97.6 71 127/70 05/08 1616 88 138/96 05/08 1251 60 106/50 Case was discussed in Interdisciplinary Treatment Team Meeting this morning with Dr. Worley present. The chart was reviewed, including vital signs, labs and medications. Interval History/Chief Complaint: She was seen today in the kitchen. She is reporting resolution of vertigo and significant improvement in her gait ataxia. She is no longer having nausea or vomiting since the injection of phenergan and Anivert given yesterday which provided immediate relief of symptoms. She is doing well with respect to mood and her thought processes continue to improve. The slurred speech has improved since yesterday. Mental Status Examination Appearance: dressed and groomed Behavior/Activity: up and about out of bed Speech: normal Thought Form: logical, coherent and goal-directed Thought Content: no AHs or VHs no delusions elicited Mood: euthymic Affect: appropriately reactive and related Suicidal Ideation: denies Homicidal Ideation:denies Orientation: oriented in all spheres Memory: grossly intact Judgment/Insight: fair Attention/Concentration: intact Other: Medical Decision Making (Note new problems, management options, dangerousness risks) Doing much better overall. Steady progress in context of set back in recent days due to medication complication / Adverse event. Assessment: Differential diagnosis: Lamictal toxicity due to major medication interaction with valproic acid IMPROVED WITH 50% REDUCTION IN LAMICTAL DOSE. Labyrinthitis, viral LESS LIKELY Medication oversedation i.e. Klonopin, Zyprexa, gabapentin, Atarax - POSSIBLY CONTRIBUTORY Viral meningitis (less likely, symptoms not entirely consistent) VERY UNLIKELY s/p head trauma w/o LOC due to fall. CT SCAN NEG --NEURO Exam non focal. Much improved psychiatric status and improving Diagnoses: Bipolar disorder with psychotic features Probable Lamical Toxicity(resolving) Treatment Plan: Continue current treatment plan. Requested Nursing to call Dr Gottlieb to review abnormal EKG Request SW clarification on D/C plan for psych med assembler final in patient insurance network--can no longer see Jenna Patrick APRN, residential plan returning to apartment vs. staying with parents? IOP? STATUS: Voluntary A total of 30 minutes was spent with the patient, with more than 50% of the timespent in counseling and/or coordination of care.
[2017-05-09 12:14] VITALS: BP 134/88
--- NOTE | 2017-05-09 14:41 | PN- Att Addend ---
Attending Addendum Attending Brief Note Spoke with nursing staff and patient significantly improved today. No further imaging at present and will continue to follow. Symptoms most likely medication related.
--- NOTE | 2017-05-09 15:37 | IP INCIDENTAL NOTE PSYCH ---
Incidental Note Notation: sEEN AGAIN THIS AFTERNOON TO FOLLOW-UP ON HER STATUS . SHE IS DOING MUCH BETTER. SHE IS NO LONGER HAVING GAIT ATAXIA, VERY STEADY GAIT . NO LONGER EXPERIENCING ANY VERTIGO . plan: stop 1:1 sitter d/c fall risk d/c walker
[2017-05-09 16:22] VITALS: BP 115/52
--- NOTE | 2017-05-09 17:03 | SOCIAL WORKER PROG NOTE PSYCH ---
Social Work Progress Note Progress Note Marizol is doing better today. Off one to one and walker for fall risk. She continues to be preoccupied with the idea of working to get her [employer] bonus and wondering if she can work. I continue to tell her she is not working right now. I told her if she has any questions about payment for the holiday she can call Meez at HR. I provided her with her number. Her affect was pleasant and positive. She was working on coloring in the kitchen. Looking forward to the family meeting for tomorrow.
[2017-05-09 19:47] VITALS: BP 133/72
[2017-05-10 07:42] VITALS: BP 131/87
[2017-05-10 12:19] VITALS: BP 94/48
--- NOTE | 2017-05-10 16:01 | CP SOUTH PROGRESS NOTE PSYCH ---
Psych (Inpt) Progress Note Progress Note SUSY BERGER has been admitted for 13 days. 05/10/17 Progress Note: Current Medications Sig/Kimberly Start time Last Medication Dose Route Stop Time Status Admin Acetaminophen 650 MG Q6P PRN 04/28 1800 AC 04/29 PO 1444 Divalproex Sodium 500 MG BID 04/30 1508 AC 05/10 PO 0918 Gabapentin 600 MG AT BEDTIME 04/300 AC 05/09 PO 213 Lamotrigine 75 MG BID 05/08 1119 AC 05/10 PO 18 Nicotine 21 MG DAILY 04/28 1000 AC 05/10 TOP 18 Nicotine 2 MG Q2P PRN 04/27 2030 AC 05/04 PO 213 Olanzapine 15 MG AT BEDTIME 05/04 2200 AC 05/09 PO 213 Laboratory Tests 05/08 05/08 1154 1154 Chemistry Sodium (137 - 145 mmol/L) 140 Potassium (3.5 - 5.1 mmol/L) 4.5 Chloride (98 - 107 mmol/L) 105 Carbon Dioxide (22 - 30 mmol/L) 25 Anion Gap (5 - 16) 10 BUN (7 - 17 mg/dL) 14 Creatinine (0.5 - 1.0 mg/dL) 1.0 Estimated GFR (>60 ml/min) > 60 BUN/Creatinine Ratio (7 - 25 %) 14.0 Ammonia (9 - 30 umol/L) < 9 L Hematology CBC w Diff NO MAN DIFF REQ WBC (4.8 - 10.8 /CUMM) 9.4 RBC (4.20 - 5.40 /CUMM) 4.32 Hgb (12.0 - 16.0 G/DL) 13.3 Hct (37 - 47 %) 39.2 MCV (81.0 - 99.0 FL) 90.7 MCH (27.0 - 31.0 PG) 30.7 RDW (11.5 - 14.5 %) 14.0 Plt Count (130 - 400 /CUMM) 275 MPV (7.4 - 10.4 FL) 7.7 Gran % (42.2 - 75.2 %) 82.5 H Lymphocytes % (20.5 - 51.1 %) 14.0 L Monocytes % (1.7 - 9.3 %) 2.3 Eosinophils % (0 - 5 %) 0.9 Basophils % (0.0 - 2.0 %) 0.3 Absolute Granulocytes (1.4 - 6.5 /CUMM) 7.7 H Absolute Lymphocytes (1.2 - 3.4 /CUMM) 1.3 Absolute Monocytes (0.10 - 0.60 /CUMM) 0.2 Absolute Eosinophils (0.0 - 0.7 /CUMM) 0.1 Absolute Basophils (0.0 - 0.2 /CUMM) 0 PUBS MCHC (33.0 - 37.0 G/DL) 33.8 Toxicology Valproic Acid (50 - 120 ug/mL) 83.4 Orders Procedure Date/time Status Nursing Misc 05/09 UNK Active INPT Psych Sitter 05/09 UNK Complete CP South Sitter/Safety Monitor 05/09 UNK Complete VALPROIC ACID 05/08 1145 Complete CBC WITHOUT DIFFERENTIAL 05/08 1145 Complete BASIC ELECTROLYTES PLUS BUN&CR 05/08 1145 Complete Change service to 05/08 1111 Active SUB HSP (35 MIN) 05/08 UNK Complete AMMONIA LEVEL 05/08 UNK Complete MISSING MEDICATION FORM 05/08 UNK Active SUB HSP (25 MIN) 05/07 UNK Complete SUB HSP (15 MIN) 05/06 UNK Complete SUB HSP (15 MIN) 05/05 UNK Complete SUB HSP (35 MIN) 05/03 UNK Complete Vital Signs Date Time Temp Pulse Resp B/P B/P Pulse O2 O2 Flow FiO2 Mean Ox Delivery Rate 05/10 1219 86 94/48 05/10 0742 97.2 96 131/87 05/09 1947 97.8 78 133/72 05/09 1622 84 115/52 Case was discussed in Interdisciplinary Treatment Team Meeting this morning with Dr. Worley present. The chart was reviewed, including vital signs, labs and medications. Interval History/Chief Complaint: A family meeting was held this afternoon with the patient her parents and her boyfriend with whom she cohabitating in apartment in [facility], social sciences lecturer Kathrine ZAMORA, medical student Ko and myself. The purpose of this meeting was to validate some of the history that has already been obtained and to develop a specific discharge plan. The patient had recently had difficulty with gait ataxia falling which resulted in a head trauma (negative CT scan) and it was ultimately decided that the source of the problem was a medication interaction between valproic acid and Lamictal which was resulting in toxic level of Lamictal and wants the Lamictal dose was decreased by 50% the problems with gait ataxia vertigo had abated. Prior to this during some initial difficulty with gait ataxia some of the other medications including gabapentin and and Zyprexa were reduced. During today's family meeting patient was exhibiting some disorganized thought processes and had improved to a point where she was improved beyond where she is today and on this basis we will defer the decision to discharge her tomorrow and will reevaluate tomorrow it is possible she may not be able to be discharged Sunday or over the weekend but we will evaluated on a day-to-day basis. The dose of Zyprexa will be increased. It was determined that when the patient is discharged she will return to live with her parents until she is stable and she will have assistance and supervision of her medication with the use of a weekly pill case. Mental Status Examination Appearance: dressed and groomed Behavior/Activity: up and about out of bed Speech: normal Thought Form: logical, coherent and goal-directed BUT INCREASINGLY TANGENTIAL Thought Content: no AHs or VHs no delusions elicited Mood: euthymic Affect: appropriately reactive and related Suicidal Ideation: denies Homicidal Ideation:denies Orientation: oriented in all spheres Memory: grossly intact Judgment/Insight: fair Attention/Concentration: intact Other: Medical Decision Making (Note new problems, management options, dangerousness risks) The gait ataxia and other symptoms associated with the medication interaction have completely resolved however she is exhibiting some regression in her prior improvements with respect to her thought processes and is a bit more tangential. The decision to discharge patient is being deferred and will be evaluated on a day-to-day basis depending dose increase in Zyprexa today Assessment: Differential diagnosis: Lamictal toxicity due to major medication interaction with valproic acid IMPROVED WITH 50% REDUCTION IN LAMICTAL DOSE. Diagnoses: Bipolar disorder with psychotic features Probable Lamical Toxicity(resolved) Treatment Plan: Increase Zyprexa dose to 10 mg by mouth twice a day Otherwise continue current treatment plan STATUS: Voluntary A total of 60 minutes was spent with the patient, with more than 50% of the timespent in counseling and/or coordination of care.
--- NOTE | 2017-05-10 16:14 | SOCIAL WORKER PROG NOTE PSYCH ---
Social Work Progress Note Progress Note Marizol's parents and kiara Nuñez came in for a family meeting at 3pm. Gibran LEWIS was also present for this meeting. Joaquin didn't say alot during the meeting, other than he knew she wasn't quite right when her driving was deteriorating. He said he didn't really know alot that was going on due to being ill himself. He is concerned about her returning to the [facility] apartment due to the stimulation outside. The neighborhood is not that great and there is alot of noise. Marizol was relieved to have spoken with Dina in HR at her employer's office. She was happy to hear Dina is working on her FMLA and that she won't lose her job. Talked about the idea of her staying at her parent 's home vs. her apartment. She would prefer to stay at her parent's home for now, as that is where she said she would feel most comfortable and safe. Discussed a referral to [facility] as an aftercare plan. Marizol continues to present with disorganized tangential thoughts and is making progress slowly, but would most likely benefit from additional time. So we told her that she may not discharge tomorrow and that we would let her know. Dad talked privately to me after stating that he didn't feel she was quite ready. Updated clinical information left for Crystal at [facility] [phone].
[2017-05-10 16:22] VITALS: BP 132/71
[2017-05-10 20:18] VITALS: BP 139/72
[2017-05-11 08:15] VITALS: BP 128/78
--- NOTE | 2017-05-11 08:46 | OP PSYCH INCIDENTAL NOTE ---
OPS Incidental Note Details: Phoned [employer]ability ; Fx#[phone]; claim #[id number].
--- NOTE | 2017-05-11 11:54 | CP SOUTH PROGRESS NOTE PSYCH ---
Psych (Inpt) Progress Note Progress Note SUSY BERGER has been admitted for 14 days. 05/11/17 Progress Note : Current Medications Sig/Kimberly Start time Last Medication Dose Route Stop Time Status Admin Acetaminophen 650 MG Q6P PRN 04/28 1800 AC 04/29 PO 1444 Divalproex Sodium 500 MG BID 04/30 1508 AC 05/11 PO 0956 Gabapentin 600 MG AT BEDTIME 04/30 2200 AC 05/10 PO 2135 Lamotrigine 75 MG BID 05/08 1119 AC 05/11 PO 0955 Nicotine 21 MG DAILY 04/28 1000 AC 05/11 TOP 0955 Nicotine 2 MG Q2P PRN 04/27 2030 AC 05/04 PO 2133 Olanzapine 10 MG BID 05/10 2200 AC 05/11 PO 0956 Olanzapine 15 MG AT BEDTIME 05/04 2200 DC 05/09 PO 213 Laboratory Tests 05/08 05/08 1154 1154 Chemistry Sodium (137 - 145 mmol/L) 140 Potassium (3.5 - 5.1 mmol/L) 4.5 Chloride (98 - 107 mmol/L) 105 Carbon Dioxide (22 - 30 mmol/L) 25 Anion Gap (5 - 16) 10 BUN (7 - 17 mg/dL) 14 Creatinine (0.5 - 1.0 mg/dL) 1.0 Estimated GFR (>60 ml/min) > 60 BUN/Creatinine Ratio (7 - 25 %) 14.0 Ammonia (9 - 30 umol/L) < 9 L Hematology CBC w Diff NO MAN DIFF REQ WBC (4.8 - 10.8 /CUMM) 9.4 RBC (4.20 - 5.40 /CUMM) 4.32 Hgb (12.0 - 16.0 G/DL) 13.3 Hct (37 - 47 %) 39.2 MCV (81.0 - 99.0 FL) 90.7 MCH (27.0 - 31.0 PG) 30.7 RDW (11.5 - 14.5 %) 14.0 Plt Count (130 - 400 /CUMM) 275 MPV (7.4 - 10.4 FL) 7.7 Gran % (42.2 - 75.2 %) 82.5 H Lymphocytes % (20.5 - 51.1 %) 14.0 L Monocytes % (1.7 - 9.3 %) 2.3 Eosinophils % (0 - 5 %) 0.9 Basophils % (0.0 - 2.0 %) 0.3 Absolute Granulocytes (1.4 - 6.5 /CUMM) 7.7 H Absolute Lymphocytes (1.2 - 3.4 /CUMM) 1.3 Absolute Monocytes (0.10 - 0.60 /CUMM) 0.2 Absolute Eosinophils (0.0 - 0.7 /CUMM) 0.1 Absolute Basophils (0.0 - 0.2 /CUMM) 0 PUBS MCHC (33.0 - 37.0 G/DL) 33.8 Toxicology Valproic Acid (50 - 120 ug/mL) 83.4 Orders Procedure Date/time Status SUB HSP (35 MIN) 05/10 UNK Complete SUB HSP (35 MIN) 05/09 UNK Complete Nursing Misc 05/09 UNK Active INPT Psych Sitter 05/09 UNK Complete CP South Sitter/Safety Monitor 05/09 UNK Complete SUB HSP (35 MIN) 05/08 UNK Complete MISSING MEDICATION FORM 05/08 UNK Active SUB HSP (25 MIN) 05/07 UNK Complete SUB HSP (15 MIN) 05/06 UNK Complete SUB HSP (15 MIN) 05/05 UNK Complete Vital Signs Date Time Temp Pulse Resp B/P B/P Pulse O2 O2 Flow FiO2 Mean Ox Delivery Rate 05/11 815 97.2 72 128/78 05/10 2018 97.7 72 139/72 05/10 1622 74 132/71 05/10 1219 86 94/48 Case was discussed in Interdisciplinary Treatment Team Meeting this morning with Dr. Worley present. The chart was reviewed, including vital signs, labs and medications. Interval History/Chief Complaint: Since the dosage reduction in the Lamictal, she has recovered fully from the gait ataxia , vertigo and related nausea/vomiting. However since reducing dose of Zyprexa she is more tangential and exhibiting more mood lability than before the onset of her apparent lamictal toxicity (2/2 interaction after VPA was added to regimen). She was doing much better in terms of her thought process and mood stability. Overall, she is vastly imnproved over her initial admitting state but was recently doing much better than is the case today. All were advised yesterday at the family meeting held yesterday that any discharge plans will be held in abbeance pending patients clinical status. Mental Status Examination Appearance: dressed and groomed Behavior/Activity: up and about out of bed Speech: normal Thought Form: logical, coherent and goal-directed BUT INCREASINGLY TANGENTIAL Thought Content: no AHs or VHs no delusions elicited Mood: some mood lability is re-emerging Affect: appropriately reactive and related Suicidal Ideation: denies Homicidal Ideation:denies Orientation: oriented in all spheres Memory: grossly intact Judgment/Insight: fair Attention/Concentration: intact Other: Medical Decision Making (Note new problems, management options, dangerousness risks) The gait ataxia and other symptoms associated with the medication interaction have completely resolved however she is exhibiting some regression in her prior improvements with respect to her thought processes and is a bit more tangential. The decision to discharge patient is being deferred and will be evaluated on a day-to-day basis depending dose increase in Zyprexa further again today as well as the depakote. Assessment: Differential diagnosis: Lamictal toxicity due to major medication interaction with valproic acid IMPROVED WITH 50% REDUCTION IN LAMICTAL DOSE. Diagnoses: Bipolar disorder with psychotic features Probable Lamical Toxicity(resolved) Treatment Plan: Increase Zyprexa dose to 15 mg by mouth qhs and 10 mg qam VPA increase to 500 mg QAM and 750mg QHS Check labs in 3 days Otherwise continue current treatment plan STATUS: Voluntary A total of 35 minutes was spent with the patient, with more than 50% of the timespent in counseling and/or coordination of care.
--- NOTE | 2017-05-11 11:58 | SOCIAL WORKER PROG NOTE PSYCH ---
Social Work Progress Note Progress Note Pt was intermittedly crying through out all day, she is struggling with being here after 2003 and having so much time away from the hospital she is worked up about her current situation. Pt agreeable to IOP 05/16/17 at 1:15pm at IOP.
[2017-05-11 12:06] VITALS: BP 132/82
[2017-05-11 15:07] VITALS: BP 142/75
[2017-05-11 20:09] VITALS: BP 111/67
[2017-05-12 07:46] VITALS: BP 130/90
[2017-05-12 11:57] VITALS: BP 111/77
--- NOTE | 2017-05-12 14:11 | CP SOUTH PROGRESS NOTE PSYCH ---
Psych (Inpt) Progress Note Progress Note Include the following elements, when applicable: Involvement in the active treatment of the patient with behavioral observations of the patient and the patient's response to the treatment. Review of the ongoing treatment process in the context of the treatment plan. Indication of how multi-disciplinary staff members are carrying out the treatment plan. Plans for future interventions and recommendations for revision of the treatment plan. Liaison with other physicians/providers. Progress Note: Chart reviewed, progress discussed with nursing staff. Interviewed patient this morning. She was mildly intrusive, immediately upon my arrival to the unit she approached me. Highly concerned with meds, discharge date, and her socks, though was unable to clearly articulate full thoughts on any of these matters. She was labile, crying at times, with tangentiality and or loose associations. At times bizarre. She did deny any SI/HI or AVH. Vitals reviewed and are within normal limits.Laboratory results today, a CMP, was largely within normal limits. Mental status exam: Adequately groomed (recently showered) female dressed appropriately however not wearing socks at times. Poor eye contact, speech was of odd prosody, increased amount, increased volume. Mood was "terrible", thought process was disorganized, tangential at times, thought content including medications, discharge date, articles of clothing. She denied SI or HI. She denies perceptual disturbances. Her cognition she was alert and oriented. Her insight and judgment was markedly limited. A/P: continues to demonstrate mood lability as well as thought and some behavioral disorganization. Does seem to continue to improve from a cognitive standpoint. Will continue present management as per primary team.
[2017-05-12 15:33] VITALS: BP 120/78
[2017-05-13 08:13] VITALS: BP 109/74
[2017-05-13 12:12] VITALS: BP 137/80
--- NOTE | 2017-05-13 13:12 | CP SOUTH PROGRESS NOTE PSYCH ---
Psych (Inpt) Progress Note Progress Note Include the following elements, when applicable: Involvement in the active treatment of the patient with behavioral observations of the patient and the patient's response to the treatment. Review of the ongoing treatment process in the context of the treatment plan. Indication of how multi-disciplinary staff members are carrying out the treatment plan. Plans for future interventions and recommendations for revision of the treatment plan. Liaison with other physicians/providers. Progress Note: Chart reviewed, progress discussed with nursing staff. Interviewed patient this morning. She was much more organized today than on interview yesterday. However, continues to display tangentiality, frequently switching back and forth between talking about medication timing as well as her activities at work as well as her personal life. However, much less labile than yesterday. She denied any SI, HI, or AVH. Vitals reviewed and are within normal limits. No new labs today. Mental status exam: Adequately groomed female dressed appropriately. She was carrying around her hospital benny present bag. Good eye contact, speech was of odd prosody, increased amount, increased volume. Mood was "pretty good" Affect odd at times, mildly labile, thought process was disorganized, tangential at times, thought content including medications, work, and discharge date. She denied SI or HI. She denies perceptual disturbances. Her cognition she was alert and oriented. Her insight and judgment was mildly limited. A/P: Mood lability and thought disorganization appeared to have improved since yesterday, though presumably below baseline at this point. Will continue present management as per primary team.
[2017-05-13 15:56] VITALS: BP 131/80
[2017-05-13 19:50] VITALS: BP 120/74
[2017-05-14 07:45] VITALS: BP 113/64
[2017-05-14 12:03] VITALS: BP 105/57
--- NOTE | 2017-05-14 14:12 | CP SOUTH PROGRESS NOTE PSYCH ---
Psych (Inpt) Progress Note Progress Note Include the following elements, when applicable: Involvement in the active treatment of the patient with behavioral observations of the patient and the patient's response to the treatment. Review of the ongoing treatment process in the context of the treatment plan. Indication of how multi-disciplinary staff members are carrying out the treatment plan. Plans for future interventions and recommendations for revision of the treatment plan. Liaison with other physicians/providers. Progress Note: Dr. Segovia's notes reviewed. Medication list reviewed. Case discussed with nurse, who reports that the patient talks non-stop. PPD negative. Was constipated. Valproic Acid 94.2 ug/mL 05/14/17 0635 Patient seen at 10:52 AM. Dressed in [employer]on Powers. Reports she does really well until it is time for visitors. States family meeting on went fine. Eager for discharge. Tearful when I told her that Gibran LELAND Garcia has left [facility]. She seems a little labile. States that she needs Lamictal to breathe. Feels sad at 7/10. Rates anxiety like 9/10 because Gibran left. Still hopeful because mother and father are coming in and might be bringing someone else to visit also. Feels helpless regarding herself. Denies feeling worthless or guilty. Denies suicidal and homicidal ideation. Denies auditory and visual hallucinations and paranoid ideation. Reports sleep is great on her current medications. States appetite has improved. States energy continues to decline the longer she stays here. Tolerating medications well. States she had a bowel movement last night. IMPRESSION: Slow progress. Continue present treatment plan. Remains labile.
[2017-05-14 16:22] VITALS: BP 127/82
[2017-05-14 20:05] VITALS: BP 125/72
[2017-05-15 08:22] VITALS: BP 127/64
[2017-05-15 12:33] VITALS: BP 127/76
--- NOTE | 2017-05-15 15:16 | SOCIAL WORKER PROG NOTE PSYCH ---
Social Work Progress Note Progress Note SW met with pt . Pt presents as cooperative, friendly and tangential thoughts. She denies SI/HI/AH/VH at present. She is eager to go home as she is frustrated seeing people come and go. Pt noted she missed a day of group last week as she was upset she did not discharge. She said she has resumed participating daily in her treatment. Pt also talked about her pas psychiatric hx and family hx. She said her goal is to be able to find an outpatient program closer to [place] or [place] as she is right down the street from them.
--- NOTE | 2017-05-15 15:36 | CP SOUTH PROGRESS NOTE PSYCH ---
Psych (Inpt) Progress Note Progress Note I reviewed Dr. Bird and Dr. Segovia's notes. Medication list reviewed. I received feedback on patients progress from the multidisciplinary treatment team. Mental Status Examination: She was talkative with mild pressure. She reported that she was able to stay out of hospitals for a very long time with lamictal and Latuda. She reported that she feels better but is still down. She reported moderate anxiety, she denied feeling hopeless or worthless. She denied wishing or thinking of suicide Denied violent thoughts or thoughts of homicide. She denied hallucinations, denied paranoid ideation, and there were no delusions observed. Tolerating medications well. She was coherent despite some tangential and circumstantial thought process IMPRESSION: Remains talkative with mild pressure and circumstantial and tangential thought process Treatment Plan Update: Increase lamictal to 100 mg BID ( she is focused on being on the 300 mg /day dose she was on for years) Continue other medications unchanged
[2017-05-15 16:39] VITALS: BP 121/67
[2017-05-15 20:17] VITALS: BP 120/76
[2017-05-16 08:20] VITALS: BP 128/54
[2017-05-16 12:20] VITALS: BP 133/76
--- NOTE | 2017-05-16 14:05 | CP SOUTH PROGRESS NOTE PSYCH ---
Psych (Inpt) Progress Note Progress Note I received feedback on the patients progress from the multidisciplinary treatment team during the daily report. Mental Status Examination: Marizol was alert and oriented to time, place, and person. She was talkative with mild pressure. Moderate thought disorder (she was all-in-all coherent despite her tangential and circumstantial thought process). She reported that she is not feeling depressed today. She reported her level of anxiety as moderate. She denied feeling hopeless or worthless, and denied wishing or thinking of suicide. Marizol denied violent thoughts or thoughts of homicide. She denied hallucinations, denied paranoid ideation, and there were no delusions observed. Assessment: Remains talkative with mild pressure and circumstantial and tangential thought process Treatment Plan Update: I reviewed current and past medication trials, we agreed on the following: Reduce and change Olanzapine to 20 mg QHS (none during the daytime) Increase Lamictal to 150 mg BID Continue other medications unchanged Re-evaluate tomorrow
[2017-05-16 15:41] VITALS: BP 128/69
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
[2017-05-16 19:43] VITALS: BP 131/57
[2017-05-17 07:47] VITALS: BP 122/70
[2017-05-17 12:24] VITALS: BP 130/68
--- NOTE | 2017-05-17 14:01 | CP SOUTH PROGRESS NOTE PSYCH ---
Psych (Inpt) Progress Note Progress Note Yesenia progress and treatment were reviewed by the multidisciplinary treatment team during the morning daily report. Mental Status Examination: Marizol was hoping to be dicharged tomorrow. She was alert and oriented to time, place, and person. She was talkative with mild pressure. She still has a thought disorder but seemed improved and all-in-all coherent despite a tangential and circumstantial thought process. She reported that she is not feeling depressed and reported her level of anxiety is manageable/mild. She denied feeling hopeless or worthless, and denied wishing or thinking of suicide. Marizol denied violent thoughts or thoughts of homicide. She denied hallucinations, denied paranoid ideation, and there were no delusions observed. Assessment: Marizol seemed less thought disordered although she remains talkative with mild pressure and circumstantial and tangential thought process Treatment Plan Update: I reviewed current and past medication trials, we agreed on the following: Continue Olanzapine 20 mg QHS Continue Lamictal 150 mg BID Reduce Gabapentin to 300 mg at bedtime Continue other medications unchanged Re-evaluate tomorrow
[2017-05-17 15:50] VITALS: BP 138/79
--- NOTE | 2017-05-17 16:42 | SOCIAL WORKER PROG NOTE PSYCH ---
Social Work Progress Note Progress Note Marizol shared that she was starting her 2018 journal. Feels saddened that she is still here in the hospital and was hoping to get out before the weekend for New Year's. I told her that we feel she should stay through the weekend and look at d/c for early next week. She wasn't happy to hear that, but accepted it. She told me she visited with her parents last night and that they are picking up her sister, who is coming from [place] today. She was sad that she missed being out of the hospital to visit with her other sister during [place]. She was talked about missing her cats. Slow improvement, seems a little less anxious today. Repetative in communication, telling me things that she has talked about frequently. Attended groups. Spoke with Marizol's Mother Thalia and let her know that she will be here through the weekend. She wasn't surprised and told me that Marizol had called her and told her this. She is trying to support Marizol and encourage her to be patient. Faxed disability paperwork to [facility].
[2017-05-17 20:00] VITALS: BP 108/70
[2017-05-18 07:40] VITALS: BP 130/88
--- NOTE | 2017-05-18 11:52 | SOCIAL WORKER PROG NOTE PSYCH ---
Social Work Progress Note Progress Note Marizol was upset this morning as she saw a couple of people discharge from the unit. She keeps talking about her frustration in still being here. Talked about how sometimes people just need more time and we want her to be good enough to leave so she won't have to return. She remains hyperverbal and repetative about her situation and how much she tried to avoid a hospitalization after 10 years. She appeared more irritable today than what I have seen. She kept stating that the doctor and I get to have our "family holiday" and she doesn't. Talked about possible discharge for Sunday. Review done with [facility]- covering child adolescent care [facility] reached out [phone]. Marizol authorized for additional coverage with review on 05/22/17. Spoke with Marizol's Mother to discuss discharge for Sunday. Her Mother shared that the plan is for Marizol to return to her apartment in [place] with her kiara Nuñez. She said now that they are aware that they are still together and things are better she should go there. I told her I scheduled the [facility] intake for Sunday at 1:15. Mom asked about a [facility] referral since she will be in [place]. I told her that I can do the referral, but can't guarentee when she would get an intake. Expressed the need for her to start right away. She stated she will bring Marizol to [facility], but expressed it was a hardship on her to drive to [place] and bring her for her appts. and would like the referral done for [facility] so she can go there. Referral was completed and faxed. Reached out to Joaquin (kiara) and reported d/c for Sunday. He was aware and said he would be visiting Marizol james. Monica Leger called from [facility] and offered an intake for 05/[address] Allen [address] [place] [address] in [place]. [phone].
[2017-05-18 12:23] VITALS: BP 124/67
--- NOTE | 2017-05-18 14:44 | CP SOUTH PROGRESS NOTE PSYCH ---
Psych (Inpt) Progress Note Progress Note Brennan progress and treatment plan were reviewed by the multidisciplinary treatment team during the morning daily report. Mental Status Examination: Marizol talkative but seemed less pressured and not as long winded She was alert and oriented to time, place, and person. Although she still has a thought disorder, she is not floridly psychotic. Generally coherent despite tangential thoughts and circumstantial/over-detailed speech. She reported that she is not feeling depressed and reported her level of anxiety is manageable/mild. She denied feeling hopeless or worthless, and denied wishing or thinking of suicide. Marizol denied violent thoughts or thoughts of homicide. She denied hallucinations, denied paranoid ideation, and there were no delusions observed. Assessment: Marizol is talkative with mild pressure and circumstantial and tangential thought process. However, she is not incoherent and not delusional. There are no current safety concerns and she is slated for a SundayMay 22 discharge even if the thought disorder persist (I believe on the continuum of severity it is mild) Treatment Plan Update: Continue Inpatient care Continue Olanzapine 20 mg QHS Continue Lamictal 150 mg BID D/C Gabapentin Continue other medications unchanged Almost a deficite discharge on SundayMay 22
[2017-05-18 15:53] VITALS: BP 117/85
[2017-05-18 19:48] VITALS: BP 114/52
[2017-05-19 08:19] VITALS: BP 97/57
--- NOTE | 2017-05-19 11:43 | CP SOUTH PROGRESS NOTE PSYCH ---
Psych (Inpt) Progress Note Progress Note Include the following elements, when applicable: Involvement in the active treatment of the patient with behavioral observations of the patient and the patient's response to the treatment. Review of the ongoing treatment process in the context of the treatment plan. Indication of how multi-disciplinary staff members are carrying out the treatment plan. Plans for future interventions and recommendations for revision of the treatment plan. Liaison with other physicians/providers. Progress Note: Medication list reviewed. Case discussed with RN, who reports that the patient remains labile and disorganized. Patient seen at 10:41 a.m. She was watching TV in [employer] before meeting with me in office. Reports doing well. Has no complaints. Please she didn't have a fog trying to wake up this morning. Reports some R lower arm pain which may be work-related. I recommended she try some prn Tylenol. Affect is calm and euthymic/currently stable. Looking forward to discharge on 05/22/17 with follow up at [facility]. Mood is positive, stating she can relax. Sad 2/10 because peers have left and she hasn't been discharged yet. Anxiety 0/10. Denies feeling hopeless, helpless, worthless or guilty. Denies active and passive SI, HI, AH, VH and PI. Reports having slept very well with no DFA last night. Appetite and energy are described as good. Tolerating medications well, without complaint. IMPRESSION: Condition improving. Continue present treatment plan. Anticipate discharge on 05/22/17. Monitor R lower arm pain.
[2017-05-19 12:03] VITALS: BP 106/73
[2017-05-19 16:01] VITALS: BP 113/65
[2017-05-19 19:50] VITALS: BP 108/60
[2017-05-20 08:37] VITALS: BP 104/66
[2017-05-20 12:20] VITALS: BP 125/58
--- NOTE | 2017-05-20 15:12 | CP SOUTH PROGRESS NOTE PSYCH ---
Psych (Inpt) Progress Note Progress Note Include the following elements, when applicable: Involvement in the active treatment of the patient with behavioral observations of the patient and the patient's response to the treatment. Review of the ongoing treatment process in the context of the treatment plan. Indication of how multi-disciplinary staff members are carrying out the treatment plan. Plans for future interventions and recommendations for revision of the treatment plan. Liaison with other physicians/providers. Progress Note: Case discussed with RN, who reports that the patient is doing better. Calm. More organized. Patient seen at 1:33 pm. Reports that she is doing much better now than she had this morning. States she does better with structure and something to look forward to, and there is less structure here on weekends. "If no structure, no rhythm." Affect is calm and euthymic. Thinking seems organized. Mood is good, stating she just had a good phone call. Looking forward to visits from parents and boyfriend at 7:30 pm. Sad 0/10. Anxiety 1/10. Denies feeling hopeless, helpless, worthless or guilty. Denies active and passive SI, HI, AH, VH and PI. Reports sleeping "well, a little too well." States she tooks four hour naps yesterday and this morning. Appears awake and alert. Reports appetite and energy are good. Tolerating medications well, without complaint. IMPRESSION: Slow progress. Continue present treatment plan. Discharge is anticipated for .
[2017-05-20 16:28] VITALS: BP 110/75
[2017-05-20 19:56] VITALS: BP 135/75
[2017-05-20 20:15] VITALS: BP 135/75
[2017-05-21 07:56] VITALS: BP 124/77
[2017-05-21 12:21] VITALS: BP 130/74
[2017-05-21 15:58] VITALS: BP 133/63
--- NOTE | 2017-05-21 19:46 | CP SOUTH PROGRESS NOTE PSYCH ---
Psych (Inpt) Progress Note Progress Note Include the following elements, when applicable: Involvement in the active treatment of the patient with behavioral observations of the patient and the patient's response to the treatment. Review of the ongoing treatment process in the context of the treatment plan. Indication of how multi-disciplinary staff members are carrying out the treatment plan. Plans for future interventions and recommendations for revision of the treatment plan. Liaison with other physicians/providers. Progress Note: The patient was seen 1: 1 and discussed with the unit staff. We reviewed the inpatient progress notes. The patient was reported to act appropriately on the unit, participating in activities, appropriate with peers and staff members. She is a medium height and weight 37 years old female, with shoulder length, dark brown hair pulled back in a ponytail. She is cheerful, smiling. She has a In her upper teeth. She is wearing a tie dye shirt and pants. She is well groomed, pleasant and cooperative. The patient reports improved mood, stable mood. She speaks with well articulated, goal directed, average rate, volume and tone of speech. Her thought processes are linear there is no evidence of psychosis, there is no evidence or kassandra of kassandra or hypomania. The patient denies suicidal/homicidal ideation, auditory/visual hallucinations, she is tolerating medication well. The patient feels ready to be discharged, feeling strongly that the medication is helpful and that she will be fine going back home to live with her parents. She has good insight and judgment and is willing to follow recommendations for aftercare. We will continue present management.. She will be seeing daily by the unit psychiatrist.
[2017-05-21 19:51] VITALS: BP 130/67
[2017-05-22 07:34] VITALS: BP 98/56
--- NOTE | 2017-05-22 10:29 | SOCIAL WORKER PROG NOTE PSYCH ---
Social Work Progress Note Progress Note Called Marizol's parents to inform of discharge for today. Parents will come around 1pm and go with Marizol to IOP intake for 1:15 today. Marizol is happy she is leaving today. Dendron disappointed that she missed seeing her sister from [place] over the weekend. Positive mood today, looking forward to going home and resuming some responsibilities. Mood was stable, thoughts clear and organized.
[2017-05-22] MEDS ORDERED: OLANZAPINE10 M1 PO (10:33)
[2017-05-22] MEDS ORDERED: NICOTINE PATCH1 EAC2 TOP (10:33)
[2017-05-22] MEDS ORDERED: DIVALPROEX SOD500 M2 PO (10:33)
[2017-05-22] MEDS ORDERED: LAMICTAL100 M2 PO (10:33)
[2017-05-22 12:12] VITALS: BP 130/59
--- NOTE | 2017-05-22 14:11 | SOCIAL WORKER PROG NOTE PSYCH ---
Social Work Progress Note Faxed Referral(s) Referred To: [facility] Transition of Care Documents sent: Health Summary Faxed to: [facility] Fax #: [phone] Faxed by: Kathrine Ryan Date faxed: 05/22/17 Time Faxed: [phone]
--- NOTE | 2017-05-22 20:19 | CP SOUTH PROGRESS NOTE PSYCH ---
Psych (Inpt) Progress Note Progress Note Brennan progress and treatment plan were reviewed by the multidisciplinary treatment team during the morning daily report. Mental Status Examination: Marizol was not talkative today and was not pressured and was not long winded. She was alert and oriented to time, place, and person. Much less thought disordered, coherent despite tangential thoughts and circumstantial/over- detailed speech. She reported that she is not feeling depressed and reported her level of anxiety is manageable/mild. She denied feeling hopeless or worthless, and denied wishing or thinking of suicide. Marizol denied violent thoughts or thoughts of homicide. She denied hallucinations, denied paranoid ideation, and there were no delusions observed. Assessment: Marizol showed significant improvement in thought disorder, she is ready for discharge Treatment Plan Update: D/C Home Continue Olanzapine 20 mg QHS Continue Lamictal 150 mg BID Depakote 1000 mg at bedtime
--- NOTE | 2017-05-24 08:50 | DISCHARGE SUMMARY REPORT-PSYCH ---
Visit Information Visit Dates/Diagnosis' Admission Date: 04/27/17 Discharge Date: 05/22/17 Reason for Admission: 37-year-old white female who was admitted because of what was thought to be manic episode. She first presented to [facility] emergency department. She was described in the emergency department physician's note as "shows rapid succession of disjointed thoughts consistent with an acute psychotic decompensation. She denied alcohol or drug abuse." Psy Discharge Primary Diag: Bipolar Disorder Hospital Course Significant Lab Findings: The patient's complete blood count was essentially normal except for a minor variation in the differential numbers which were thought which was thought not to be clinically significant There was a minor elevation in the chloride on May 12 at 1 11 mmol/L otherwise the chemistry was normal kidney function was normal so was the liver function tests As far as for the metabolic profile patient's glycerides were 115 mg/dL on April 29, and the cholesterol was 163 mg/dL LDL cholesterol was within normal range at 95 mg/dL HDL cholesterol was also normal within within range at 45 mg/ dL hemoglobin A1c was normal at 5.8% Course Complications: There were no complications while the patient was on the inpatient psychiatric unit Consultations: The patient had an admission history and physical examination done by the stocklayer/hospitalist The patient was seen again by Dr. Durham on May 08, 2017 following episode of disequilibrium and neuro exam just shows showed abnormality with her gait but the neuro exam was intact CT scan of the head was ordered and CT scan of the head showed no acute intracranial pathology at Dr. Perkins's plan was to make some medication adjustments continue to monitor symptoms of her Phenergan as needed's and to reconsider an MRI if the symptoms do not improve. Otherwise follow-up next day and the case was discussed with the nursing staff and patient seemed to have showed significant improvement and no further neuro imaging was thought to be necessary at that point Allergies: Coded Allergies: No Known Allergies (04/27/17) PER [facility] RECORD/PT UNABLE TO ANSWER Hospital Course/TX Response: The patient ended up staying relatively long time on the inpatient psychiatric unit at [facility] there was a change of providers. The patient was seen before [facility] by JOSHUA Rivero May 15 until her discharge she was followed by Dr. Sherlyn Schneider showed slow but progressive improvement until she was thought to be ready for discharge on May 22, 2017 Mental status examination at the time of discharge: Tanvi was not talkative and was not pressured. She was less productive than in previous visits with her speech and not as long-winded. She was alert and oriented to time place and person. Her thought disorder has improved significantly and she was coherent except for an occasional tangent or some over detailed/circumstantial thought here and there. She reported that she is not feeling depressed and denied having any feelings of hopelessness or worthlessness. She denied having any wishes of or thoughts of suicide. Tanvi denied violent thoughts or thoughts of homicide. Tanvi denied hallucinations and denied feeling paranoid. There were no delusions observed during the interview and there was only mild thought disorder. Impression and plan: Shania is a 37-year-old white female who was admitted in what seem to be in a manic state with some psychotic features and showed slow but consistent improvement throughout her stay in the hospital she was managed with 3 medications olanzapine Lamictal and Depakote by May 22 the team as well as the patient felt that she was ready for discharge. Discharge plan: Discharge home with intensive outpatient program at [facility] until her intake at the intensive outpatient program at [facility] which is much closer to her home. Discharge medications Please see below Discharge HBIPS - Tobacco Use Treatment Offered Post DC Medications Offered: Script Given-See Med List Post DC Tobacco Treatment Plan: Other Tobacco Tx Pgm - EtOH/Drug Use D/O Treatment Offered Post DC Medications Offered: NA-No EtOH/Drug Use D/O Post DC EtOH/SubAbuse [place] Plan: NA-No EtOH/Drug Use D/O Metabolic Screening - Screen if on a Neuroleptic Medication - Metabolic screening should include: - Blood Pressure, BMI, Glucose or Hgb A1c, & a - Lipid profile from within the past 365 days. Discharge Instructions General Discharge Information Multiple Neuroleptics: ([X]) Not Applicable OR Document below three failed attempts at monotherapy, or a plan to taper to monotherapy, or augmentation of Clozapine. () Discharge Diet Regular Discharge Activity Normal DC Disposition: Home Referrals Ordered Referrals Provider Referral 05/22/17 For Groups: [[facility]] [facility] Intake 05/22/17 1:15pm [address], [place] [address] Start until [facility] until [facility] intake Provider Referral 05/31/17 For Groups: [[facility]] [facility] Intake 05/31/[address] Allen [address] [facility], [place] [phone] Provider Referral 05/30/17 For Groups: Outpatient Psychiatry [facility] Smoking Cessation Group 05/30/17 4pm [address] [place] [address] Prescriptions Stop taking the following medications: [LAMICTAL] (Unknown Strength) [ALPRAZOLAM] (Unknown Strength) [SEROQUEL] (Unknown Strength) Start taking the following new medications: Nicotine (Nicotine Patch) 14 MG/24 HOUR PATCH.TD24 14 Milligram On the skin DAILY Qty = 14 No Refills Comments: Last Taken:05/22/17 Time:1000 Divalproex Sodium (Divalproex Sodium) 500 MG TABLET.DR 2 Tablet ORAL AT BEDTIME Qty = 30 No Refills Comments: Last Taken:TO START AT HOME Time:RECEIVED 500MG ON 05/22/17 AT 1000 Lamotrigine (Lamictal) 100 MG TABLET 150 Milligram ORAL TWICE DAILY Qty = 30 No Refills Comments: Last Taken:05/22/17 Time:1000 Olanzapine (Olanzapine) 10 MG TABLET 20 Milligram ORAL AT BEDTIME Qty = 30 No Refills Comments: Last Taken:05/21/17 Time:2200 Copies To: [facility]
== END 2017-05-22 13:13 | DRG 885 ==
LOC: ENRESERV 18:00 → CP SOUTH 19:58
PROVIDERS: Physician Assistant; Student in an Organized Health Care Education/Training Program
DX: F31.9 Bipolar disorder, unspecified (principal)
CPT/HCPCS: 36415; 81025; 82436; 93005; 93010; J2550; Q2036